=== PATIENT | male | born 1955 | race Hispanic/Latino ===

== ENCOUNTER 2018-09-25 08:06 | Observation (INO) | payer OTHER ==
--- OUTSIDE RECORDS SUMMARY | 2018-09-25 08:08 | XMS REPORT ---
:1955 [facility] Team Providers Name Role Phone Valera, Na Provider Role Unavailable Allergies, Adverse Reactions, Alerts Substance Reaction Event Type N.K.D.A. 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 Active Problem Obstructive sleep apnea G47.33 Active Assessment Obstructive apnea G47.33 Active Problem Chronic pain syndrome G89.4 Active Problem Obese E66.9 Active Problem Vertigo R42 Active Problem COPD, mild J44.9 Active Problem Essential hypertension I10 Active Assessment Hypothyroidism, unspecified E03.9 Active Assessment Neuropathy G62.9 Active Problem Obstructive apnea G47.33 Active Assessment Shortness of breath on exertion R06.02 Active Problem Osteoporosis M81.0 Active Problem Hypertriglyceridemia E78.1 Active Problem Diabetes E11.9 Active Problem Neuropathy G62.9 Active Assessment Controlled type 2 diabetes mellitus E11.9 Active without complication, without long-term current use of insulin Assessment Hypertriglyceridemia E78.1 Active Assessment Essential hypertension I10 Active Problem At high risk for falls Z91.81 Active Problem Hypothyroidism, unspecified E03.9 Active Problem 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 hypertension Problem Controlled type 2 diabetes mellitus E11.9 Active without complication, without long-term current use of insulin Medications Medication Code Code Instructions Start End Date Status Dosage System Date Metformin HCl ND 29999495516 1000 MG Orally Active 1 tablet Twice a day with meals Levothyroxine ND 78260341831 25 MCG Orally Active 1 tablet Sodium Once a day on an empty stomach in the morning Vitamin D-3 ND 75904043376 1000 UNIT Active 1 capsule Orally Once a day OneTouch Ultra ND 69959182116 - Active USE TO Test TEST BLOOD GLUCOSE TWICE A DAY ProAir HFA [facility] 95947503997 108 (90 Base) Jul 05, Active 2 puffs as MCG/ACT 2017 needed Inhalation every 6 hrs Januvia [facility] 89859215998 100 MG Orally Active 1 tablet Once a day Gabapentin [facility] 67392418313 300 MG Orally Active 1 capsule three times a day Revatio [facility] 04418393930 20 MG Orally Active 1 tablet Three times a day Multivitamin [facility] 006[address]2395 - Orally Active not defined Ultracet [facility] 05688526513 37.5-325 MG Active 2 tablets Orally every 6 as needed hrs Anoro Ellipta [facility] 40761414186 62.5mcg/25 mcg Jul 05October Active 1 puff Orally once a 2017 day in AM Pravachol [facility] 83242723577 40 MG Orally Active 1 tablet Once a day Results No Known Results Immunizations Vaccine Administration Date Afluria Jul 05, 2018 Summary Purpose eClinicalWorks Submission
--- OUTSIDE RECORDS SUMMARY | 2018-09-25 08:08 | XMS REPORT ---
:1955 [facility] Address [address] [place] [address] Dr. Machado [address] [place] [id number] Care Team Providers Name Role Phone Unavailable Unavailable Unavailable Problems This patient has no known problems. Allergies, Adverse Reactions, Alerts This patient has no known allergies or adverse reactions. Medications This patient has no known medications.
--- OUTSIDE RECORDS SUMMARY | 2018-09-25 08:08 | XMS REPORT ---
:1955 [address] [facility] Team Providers Name Role Phone Valera, Na Provider Role Unavailable Allergies, Adverse Reactions, Alerts Substance Reaction Event Type N.K.D.A. Info Not Available Non Drug Allergy Problems Problem Type Condition Code Onset Dates Condition Status Problem Polymyositis M33.20 Active Problem Chronic pain syndrome G89.4 Active Problem Obstructive sleep apnea G47.33 Active Problem Diabetes E11.9 Active Problem Neuropathy G62.9 Active Problem Essential hypertension I10 Active Problem Obese E66.9 Active Problem Vertigo R42 Active Problem Osteoporosis M81.0 Active Problem Hypertriglyceridemia E78.1 Active Assessment Hypertriglyceridemia E78.1 Active Assessment Essential hypertension I10 Active Assessment Neuropathy G62.9 Active Assessment Hypothyroidism, unspecified E03.9 Active Problem 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 hypertension Problem Controlled type 2 diabetes mellitus E11.9 Active without complication, without long-term current use of insulin Assessment Controlled type 2 diabetes mellitus E11.9 Active without complication, without long-term current use of insulin Problem At high risk for falls Z91.81 Active Problem Hypothyroidism, unspecified E03.9 Active Medications Medication Code Code Instructions Start End Status Dosage System Date Date Metformin HCl [facility] 28668586002 1000 MG Orally Active 1 tablet Twice a day with meals OneTouch Ultra [facility] 99132661792 - Active USE TO Test TEST BLOOD GLUCOSE TWICE A DAY Multivitamin [facility] 76846-32606 - Orally Active not defined Revatio [facility] 63170447149 20 MG Orally Active 1 tablet Three times a day Levothyroxine ND 12374989004 25 MCG Orally Active 1 tablet Sodium Once a day on an empty stomach in the morning Pravachol [facility] 29487806327 40 MG Orally Active 1 tablet Once a day Gabapentin [facility] 32870319744 300 MG Orally Active 1 capsule three times a day Vitamin D-3 [facility] 71270365386 1000 UNIT Active 1 capsule Orally Once a day Terbinafine HCl [facility] 16084626180 250 MG Orally Inactive 1 tablet Once a day Ultracet [facility] 51703043611 37.5-325 MG Active 2 tablets Orally every 6 as needed hrs Januvia [facility] 59295552653 100 MG Orally Active 1 tablet Once a day Results No Known Results Summary Purpose eClinicalWorks Submission
[2018-09-25] MEDS ORDERED: NA CHLORIDE 0.9% 1,000 ML ONE ×2 (08:54→13:37)
[2018-09-25] MEDS ORDERED: ONDANSETRON 4 MG/2 ML VIAL ONE ×2 (08:54→11:35)
[2018-09-25 09:10] LABS: Absolute Lymphocytes (CBC) 1.4 K/uL (0.7-4.9); Absolute Monocytes 0.9 K/uL (0.1-1.3); Absolute Neutrophil 9.5 K/uL (1.8-8.0); Basophils % 0.1 % (0-1.3); Hematocrit 49.5 % (39.6-49.0); Lymphocytes % 12.2 % (15.3-44.8); MPV 8.9 fL (7.6-11.3); Monocytes % 7.6 % (3.3-12.3)
[2018-09-25 09:17] LABS: ALT/SGPT 56 U/L (12-78); AST/SGOT 43 U/L (15-37); Alkaline Phosphatase 88 U/L (45-117); BUN Blood Urea Nitrogen 14 mg/dL (7-18); Bicarbonate 26 mmol/L (21-32); Bilirubin Direct 0.2 mg/dL (0-0.2); Bilirubin Total 0.6 mg/dL (0.2-1.0); Glucose Level 202 mg/dL (74-106); Lipase 76 U/L (73-393); Potassium 3.8 mmol/L (3.5-5.1); Protein, Total 8.6 g/dL (6.4-8.2); Sodium Level 136 mmol/L (136-145)
--- NOTE | 2018-09-25 09:52 | RAD REPORT ---
EXAM DESCRIPTION: RAD - Abdomen Acute Series - 09/25/2018 9:03 am CLINICAL HISTORY: Abdominal pain FINDINGS: The bowel gas pattern is unremarkable with moderate amount of stool throughout the colon. No abnormal calcification is displayed. Free air is not seen beneath the diaphragm. Lungs appear clear of acute infiltrate. Dilated central pulmonary arteries without significant change from 2009 compatible with pulmonary art erial hypertension
[2018-09-25] MEDS ORDERED: MORPHINE 4 MG/ML SYR ONE (11:35)
[2018-09-25 12:08] LABS: Urine Bacteria 20-50 /HPF (NONE SEEN); Urine Culture Reflex Order REFLEXED; Urine Mucus 2+ /HPF (NONE SEEN); Urine RBC <5 /HPF (NONE SEEN)
[2018-09-25 12:08] LABS: Urine Blood TRACE (NEG); Urine Glucose NEGATIVE (NEG); Urine Protein 3+ (NEG); Urine Specific Gravity >1.030 (1.005-1.030); Urine pH 5.5 (5.0-7.0)
--- NOTE | 2018-09-25 12:15 | RAD REPORT ---
EXAM DESCRIPTION: CT - Stone Protocol - 09/25/2018 11:48 am CLINICAL HISTORY: Abdominal pain. Vomiting COMPARISON: None. TECHNIQUE: Computed axial tomography of the abdomen pelvis was obtained without oral or IV contrast. Lack of IV and oral contrast limits evaluation of solid organs, bowel, and vessels. Coronal reformat roxann images were obtained and reviewed. All CT scans are performed using dose optimization technique as appropriate and may include automated exposure control or mA/KV adjustment according to patient size. FINDINGS: A renal calculus is not seen. An ureteral calculus is not noted. A bladder calculus is not present. The liver, spleen, pancreas and adrenals appear grossly normal There is no evidence of diverticulitis. The appendix appears normal Small gallstones without gallbladder wall thickening Atrophy of the muscles of the left pelvis present Mild old compression fracture L2 vertebral body Mild right basilar lung atelectasis/scarring The stomach, duodenum and proximal jejunum are dilated IMPRESSION: Negative for a genitourinary calculus Cholelithiasis without evidence of cholecystitis Mild dilatation of the stomach, duodenum and proximal jejunum probably representing a gastroenteritis . A partial mechanical obstruction is considered less likely. If the patient's symptoms persist then a followup abdominal plain film series would be recommended
--- NOTE | 2018-09-25 13:10 | ER ---
Nurse's Notes [facility] Name: Antony Johnson Age: 63 yrs Sex: Male : 1955 Arrival Date: 09/25/2018 Time: 08:07 Bed 8 Private MD: Kendal Valera Diagnosis: Vomiting;Dehydration Presentation: 09/25 08:25 Presenting complaint: Patient states: vomiting and abd pain since last night. iw Transition of care: patient was not received from another setting of care. Onset of symptoms was September 24, 2018. Risk Assessment: Do you want to hurt yourself or someone else? Patient reports no desire to harm self or others. Initial Sepsis Screen: Does the patient meet any 2 criteria? No. Patient's initial sepsis screen is negative. Does the patient have a suspected source of infection? No. Patient's initial sepsis screen is negative. Care prior to arrival: None. 08:25 Method Of Arrival: Wheelchair iw 08:25 Acuity: GINO 3 iw Historical: - Allergies: 08:27 No Known Allergies; iw - Home Meds: 13:54 Januvia 100 mg oral tab 1 tab once daily [Active]; gabapentin 300 mg oral cap 1 cap 3 ph times per day [Active]; tramadol-acetaminophen 37.5-325 mg Oral tab 2 tabs three times a day [Active]; levothyroxine 25 mcg tab 1 tab once daily [Active]; ProAir HFA 90 mcg/actuation inhalation HFAA 2 puffs every 6 hours [Active]; Anoro Ellipta 62.5-25 mcg/actuation inhalation dsdv 1 puff once daily [Active]; metformin 1,000 mg Oral tab 1 tab 2 times per day [Active]; pravastatin 40 mg oral tab 1 tab once daily [Active]; furosemide 20 mg Oral tab 1 tab once daily [Active]; - PMHx: 08:29 Diabetes - NIDDM; liver problems; iw - Immunization history:: Adult Immunizations up to date. - Social history:: Smoking status: Patient/guardian denies using tobacco. - Ebola Screening: : Patient negative for fever greater than or equal to 101.5 degrees Fahrenheit, and additional compatible Ebola Virus Disease symptoms Patient denies exposure to infectious person Patient denies travel to an Ebola-affected area in the 21 days before illness onset No symptoms or risks identified at this time. Screenin:51 Abuse screen: Denies threats or abuse. Denies injuries from another. Nutritional ph screening: No deficits noted. Tuberculosis screening: No symptoms or risk factors identified. Fall Risk None identified. Assessment: 08:55 General: Appears in no apparent distress. comfortable, unkempt, Behavior is calm, ph cooperative, appropriate for age, Reports chills for 12-24 hours. Pain: Complains of pain in abdomen diffusely Pain does not radiate. Neuro: Level of Consciousness is awake, alert, obeys commands, Oriented to person, place, time, situation. 08:55 Cardiovascular: Capillary refill < 3 seconds in bilateral fingers Patient's skin is ph warm and dry. Respiratory: Airway is patent Respiratory effort is even, unlabored, Respiratory pattern is regular, symmetrical. GI: Abdomen is round Pt is actively vomiting bile, Bowel sounds present X 4 quads. Abdomen is tender to palpation X 4 quads. Reports lower abdominal pain, upper abdominal pain, bloating, nausea, vomiting, Patient currently denies diarrhea. Derm: Skin is intact, Skin is pink, warm \\T\\ dry. Musculoskeletal: Circulation, motion, and sensation intact. Range of motion: intact in all extremities. 10:00 Reassessment: Patient appears in no apparent distress at this time. Patient and/or ph family updated on plan of care and expected duration. Pain level reassessed. Patient is alert, oriented x 3, equal unlabored respirations, skin warm/dry/pink. 11:15 Reassessment: Patient appears in no apparent distress at this time. Patient and/or ph family updated on plan of care and expected duration. Pain level reassessed. Patient is alert, oriented x 3, equal unlabored respirations, skin warm/dry/pink. Pt c/o nausea, bile-like emesis noted in bag, pt also c/o diffuse abdominal pain, states, " I want some Morphine." ERP notified, see MAR. 12:20 Reassessment: Patient appears in no apparent distress at this time. Patient and/or ph family updated on plan of care and expected duration. Pain level reassessed. Patient is alert, oriented x 3, equal unlabored respirations, skin warm/dry/pink. Pt reports that pain and nausea have improved. 14:00 Reassessment: Patient appears in no apparent distress at this time. Patient and/or ph family updated on plan of care and expected duration. Pain level reassessed. Patient is alert, oriented x 3, equal unlabored respirations, skin warm/dry/pink. Pt resting quietly, family at bedside, awaiting room assignment. 15:10 Reassessment: Patient appears in no apparent distress at this time. Patient and/or ph family updated on plan of care and expected duration. Pain level reassessed. Patient is alert, oriented x 3, equal unlabored respirations, skin warm/dry/pink. Report called to Evangelist OBREGON. Vital Signs: 08:28 BP 136 / 92; Pulse 81; Resp 18 S; Pulse Ox 95% on R/A; Weight 84.82 kg; Height 5 ft. 2 iw in. (157.48 cm); Pain 10/10; 09:30 BP 146 / 98; Pulse 77; Resp 18; Pulse Ox 94% on R/A; ph 10:30 BP 129 / 83; Pulse 86; Resp 18; Pulse Ox 95% on R/A; ph 11:30 BP 131 / 80; Pulse 82; Resp 16; Pulse Ox 94% on R/A; ph 13:00 BP 123 / 78; Pulse 78; Resp 18; Pulse Ox 95% on R/A; ph 14:00 BP 124 / 87; Pulse 85; Resp 18; Pulse Ox 94% on R/A; ph 15:00 BP 125 / 82; Pulse 80; Resp 20; Temp 97.8; Pulse Ox 95% on R/A; ph 08:28 Body Mass Index 34.20 (84.82 kg, 157.48 cm) iw ED Course: 08:07 Patient arrived in ED. rg4 08:10 Kendal Valera MD is Private Physician. rg4 08:17 Tino House MD is Attending Physician. gs 08:26 Triage completed. iw 08:28 Arm band placed on. iw 08:36 Jessie Chery, SABAS is Primary Nurse. ph 08:50 Inserted saline lock: 20 gauge in right antecubital area, using aseptic technique. ph Blood collected. 09:05 XRAY Abdomen Acute Series In Process Unspecified. EDMS 11:[address] mw3 11:[address] CT Stone Protocol In Process Unspecified. EDMS 12:50 Patient has correct armband on for positive identification. Placed in gown. Bed in low ph position. Call light in reach. Side rails up X 1. Pulse ox on. NIBP on. Door closed. Noise minimized. Warm blanket given. 12:50 No provider procedures requiring assistance completed. ph 13:08 Cate Faustin MD is Hospitalizing Provider. gs 15:23 Patient admitted, IV remains in place. ph Administered Medications: 08:54 Drug: Zofran 4 mg Route: IVP; Site: right antecubital; ph 11:30 Follow up: Response: No adverse reaction; Nausea unchanged ph 08:55 Drug: NS 0.9% 1000 ml Route: IV; Rate: 1 bolus; Site: right antecubital; ph 12:52 Follow up: Response: No adverse reaction; IV Status: Completed infusion ph 11:33 Drug: Zofran 4 mg Route: IVP; Site: right antecubital; ph 12:51 Follow up: Response: No adverse reaction; Nausea is decreased ph 11:35 Drug: morphine 4 mg Route: IVP; Site: right antecubital; ph 12:51 Follow up: Response: No adverse reaction; Pain is decreased ph 14:05 Drug: NS 0.9% 1000 ml Route: IV; Rate: 150 ml/hr; Site: right antecubital; ph 14:34 Follow up: IV Status: Completed infusion hj Outcome: 13:09 Decision to Hospitalize by Provider. gs 15:23 Admitted to Tele accompanied by tech, family with patient, via wheelchair, with chart. ph 15:23 Condition: stable 15:23 Instructed on the need for admit. 15:39 Patient left the ED. ph Signatures: Dispatcher [employer] Betsey Quinones RN RN iw Hall, Patricia, RN RN ph Joaquin, Henry, RN RN hj Garcia, Rubi rg4 Tino House MD MD gs Willis, Michelle mw3
--- NOTE | 2018-09-25 13:11 | EDPHYS ---
Physician Documentation [facility] Name: Antony Johnson Age: 63 yrs Sex: Male : 1955 Arrival Date: 09/25/2018 Time: 08:07 Bed 8 Private MD: Kendal Valera ED Physician Tino House HPI: 09/25 13:05 This 63 yrs old Male presents to ER via Wheelchair with complaints of Vomiting.gs 13:05 The patient presents to the emergency department with nausea, vomiting. Onset: The gs symptoms/episode began/occurred this morning, at 01:00. Possible causes: unknown. The symptoms are aggravated by nothing. The symptoms are alleviated by nothing. Associated signs and symptoms: Pertinent positives: abdominal pain, Pertinent negatives: anorexia. Severity of symptoms: At their worst the symptoms were moderate in the emergency department the symptoms are unchanged. The patient has not experienced similar symptoms in the past. The patient has not recently seen a physician. Historical: - Allergies: 08:27 No Known Allergies; iw - Home Meds: 13:54 Januvia 100 mg oral tab 1 tab once daily [Active]; gabapentin 300 mg oral cap 1 cap 3 ph times per day [Active]; tramadol-acetaminophen 37.5-325 mg Oral tab 2 tabs three times a day [Active]; levothyroxine 25 mcg tab 1 tab once daily [Active]; ProAir HFA 90 mcg/actuation inhalation HFAA 2 puffs every 6 hours [Active]; Anoro Ellipta 62.5-25 mcg/actuation inhalation dsdv 1 puff once daily [Active]; metformin 1,000 mg Oral tab 1 tab 2 times per day [Active]; pravastatin 40 mg oral tab 1 tab once daily [Active]; furosemide 20 mg Oral tab 1 tab once daily [Active]; - PMHx: 08:29 Diabetes - NIDDM; liver problems; iw - Immunization history:: Adult Immunizations up to date. - Social history:: Smoking status: Patient/guardian denies using tobacco. - Ebola Screening: : Patient negative for fever greater than or equal to 101.5 degrees Fahrenheit, and additional compatible Ebola Virus Disease symptoms Patient denies exposure to infectious person Patient denies travel to an Ebola-affected area in the 21 days before illness onset No symptoms or risks identified at this time. ROS: 13:05 All other systems are negative. gs Exam: 13:05 Head/Face: Normocephalic, atraumatic. Eyes: Pupils equal round and reactive to light, gs extra-ocular motions intact. Lids and lashes normal. Conjunctiva and sclera are non-icteric and not injected. Cornea within normal limits. Periorbital areas with no swelling, redness, or edema. ENT: Nares patent. No nasal discharge, no septal abnormalities noted. Tympanic membranes are normal and external auditory canals are clear. Oropharynx with no redness, swelling, or masses, exudates, or evidence of obstruction, uvula midline. Mucous membranes moist. Neck: Trachea midline, no thyromegaly or masses palpated, and no cervical lymphadenopathy. Supple, full range of motion without nuchal rigidity, or vertebral point tenderness. No Meningismus. Chest/axilla: Normal chest wall appearance and motion. Nontender with no deformity. No lesions are appreciated. Cardiovascular: Regular rate and rhythm with a normal S1 and S2. No gallops, murmurs, or rubs. Normal PMI, no JVD. No pulse deficits. Respiratory: Lungs have equal breath sounds bilaterally, clear to auscultation and percussion. No rales, rhonchi or wheezes noted. No increased work of breathing, no retractions or nasal flaring. Back: No spinal tenderness. No costovertebral tenderness. Full range of motion. Skin: Warm, dry with normal turgor. Normal color with no rashes, no lesions, and no evidence of cellulitis. MS/ Extremity: Pulses equal, no cyanosis. Neurovascular intact. Full, normal range of motion. Neuro: Awake and alert, GCS 15, oriented to person, place, time, and situation. Cranial nerves II-XII grossly intact. Motor strength 5/5 in all extremities. Sensory grossly intact. Cerebellar exam normal. Normal gait. 13:05 Constitutional: The patient appears alert, awake, uncomfortable. 13:05 Abdomen/GI: Palpation: mild abdominal tenderness, in all quadrants. Vital Signs: 08:28 BP 136 / 92; Pulse 81; Resp 18 S; Pulse Ox 95% on R/A; Weight 84.82 kg; Height 5 ft. 2 iw in. (157.48 cm); Pain 10/10; 09:30 BP 146 / 98; Pulse 77; Resp 18; Pulse Ox 94% on R/A; ph 10:30 BP 129 / 83; Pulse 86; Resp 18; Pulse Ox 95% on R/A; ph 11:30 BP 131 / 80; Pulse 82; Resp 16; Pulse Ox 94% on R/A; ph 13:00 BP 123 / 78; Pulse 78; Resp 18; Pulse Ox 95% on R/A; ph 14:00 BP 124 / 87; Pulse 85; Resp 18; Pulse Ox 94% on R/A; ph 15:00 BP 125 / 82; Pulse 80; Resp 20; Temp 97.8; Pulse Ox 95% on R/A; ph 08:28 Body Mass Index 34.20 (84.82 kg, 157.48 cm) iw MDM: 08:34 Patient medically screened. 13:05 Differential diagnosis: Nonspecific abd pain, gastritis, viral gastroenteritis, gs gastroenteritis. Data reviewed: vital signs, nurses notes, lab test result(s), radiologic studies. Counseling: I had a detailed discussion with the patient and/or guardian regarding: the historical points, exam findings, and any diagnostic results supporting the discharge/admit diagnosis. Response to treatment: the patient's symptoms have mildly improved after treatment, and as a result, I will admit patient. Physician consultation: Rosas Torres MD and will see patient in inpatient room, would like admission per Dr. Cate Faustin MD. 09/25 08:36 Order name: Basic Metabolic Panel; Complete Time: 09:54 09/25 08:36 Order name: CBC with Diff; Complete Time: 09:54 09/25 08:36 Order name: Hepatic Function; Complete Time: 09:54 09/25 08:36 Order name: Lipase; Complete Time: 09:54 09/25 08:36 Order name: Urine Microscopic Only; Complete Time: 12:22 09/25 11:45 Order name: Urine Dipstick--Ancillary (enter results); Complete Time: 12:22 va 09/25 08:36 Order name: XRAY Abdomen Acute Series; Complete Time: 09:54 09/25 11:21 Order name: CT Stone Protocol; Complete Time: 12:22 09/25 12:12 Order name: Urine Culture [facility] 09/25 13:48 Order name: Urine Drug Screen [facility] 09/25 13:48 Order name: Alcohol Serum/Plasma EDMS 09/25 08:36 Order name: IV Saline Lock; Complete Time: 08:54 09/25 08:36 Order name: Labs collected and sent; Complete Time: 08:54 09/25 08:36 Order name: Urine Dipstick-Ancillary (obtain specimen); Complete Time: 12:25 gs Administered Medications: 08:54 Drug: Zofran 4 mg Route: IVP; Site: right antecubital; ph 11:30 Follow up: Response: No adverse reaction; Nausea unchanged ph 08:55 Drug: NS 0.9% 1000 ml Route: IV; Rate: 1 bolus; Site: right antecubital; ph 12:52 Follow up: Response: No adverse reaction; IV Status: Completed infusion ph 11:33 Drug: Zofran 4 mg Route: IVP; Site: right antecubital; ph 12:51 Follow up: Response: No adverse reaction; Nausea is decreased ph 11:35 Drug: morphine 4 mg Route: IVP; Site: right antecubital; ph 12:51 Follow up: Response: No adverse reaction; Pain is decreased ph 14:05 Drug: NS 0.9% 1000 ml Route: IV; Rate: 150 ml/hr; Site: right antecubital; ph 14:34 Follow up: IV Status: Completed infusion Disposition: 09/25/18 13:09 Hospitalization ordered by Cate Faustin for Observation. Preliminary diagnosis are Vomiting, Dehydration. - Bed requested for Telemetry/MedSurg (observation). - Status is Observation. ph - Condition is Stable. - Problem is new. - Symptoms have improved. UTI on Admission? No Signatures: Dispatcher [employer] [facility] Ruthy Carrillo RN RN dw Williams, Irene, RN RN Jessie Chery RN RN ph Tino House MD MD gs Joaquin, Henry RN hj Corrections: (The following items were deleted from the chart) 13:57 13:09 Hospitalization Ordered by Cate Faustin MD for Observation. Preliminary diagnosis dw is Vomiting; Dehydration. Bed requested for Telemetry/MedSurg (observation). Status is Observation. Condition is Stable. Problem is new. Symptoms have improved. UTI on Admission? No. 15:39 13:57 09/25/2018 13:09 Hospitalization Ordered by Cate Faustin MD for Observation. ph Preliminary diagnosis is Vomiting; Dehydration. Bed requested for Telemetry/MedSurg (observation). Status is Observation. Condition is Stable. Problem is new. Symptoms have improved. UTI on Admission? No. dw
--- NOTE | 2018-09-25 13:59 | P.HP ---
Certification for Inpatient Patient admitted to: Observation With expected LOS: <2 Midnights Practitioner: I am a practitioner with admitting privileges, knowledge of patient current condition, hospital course, and medical plan of care. Services: Services provided to patient in accordance with Admission requirements found in Title 42 Section 412.3 of the Code of Federal Regulations Patient History Date of Service: 09/25/18 Primary Care Provider: Dr. Valera Reason for admission: Nausea vomiting, abdominal pain History of Present Illness: This is a 62-year-old male with history of diabetes mellitus type 2, former heavy alcohol user, C-pap sleep apnea, questionable pulmonary arterial hypertension, some cardiac disease that there been able to describe comes in with complaints of intractable nausea and vomiting along with abdominal pain for the past 1 day. Per patient, started at 5:00 p.m. last night, describes it as crampy, intermittently sharp diffuse abdominal pain without any radiation. Associated with nausea and vomiting. Last vomiting episode in the ER, nonbloody and nonbilious. He also endorses abdominal bloating and chills. He denies any fevers, chest pain, shortness of breath, diarrhea, constipation, dizziness, headache or syncopal/presyncopal episode. He also denies eating any abnormal foods in the past few days. He states that everyone in his family has eaten the same meal. He does state that he is a former heavy alcohol user. Abdominal surgical scar noted on the abdomen but patient is unable to tell me what kind of surgery he has had. He states that he did some surgery because he was a heavy alcohol user. He denies any current alcoholic usage In the ER, he was hemodynamically stable. Labs were pertinent for WBC count of 11.8, otherwise unremarkable. CT scan pertinent for cholelithiasis without cholecystitis, suspected gastroenteritis versus partial small bowel obstruction. He received 1 L bolus IV fluids, Zofran and morphine. At the time of my exam, patient was alert oriented x3, mild distress secondary to nausea and diffuse abdominal pain. He remained hemodynamically stable. - Past Medical/Surgical History Diabetic: Yes -: Diabetes mellitus type 2 -: Sleep apnea, CPAP dependent -: Cardiac disease, patient unsure -: Abdominal surgery, patient unsure - Social History Smoking Status: Never smoker Alcohol use: No Review of Systems 10-point ROS is otherwise unremarkable Physical Examination - Physical Exam General: Alert, In no apparent distress, Oriented x3 HEENT: Atraumatic, PERRLA, Mucous membr. moist/pink, EOMI, Sclerae nonicteric Neck: Supple, 2+ carotid pulse no bruit, No LAD, Without JVD or thyroid abnormality Respiratory: Clear to auscultation bilaterally, Normal air movement Cardiovascular: Regular rate/rhythm, Normal S1 S2 Gastrointestinal: Normal bowel sounds, Distended, Tenderness Musculoskeletal: No tenderness Integumentary: No rashes Neurological: Normal gait, Normal speech, Normal strength at 5/5 x4 extr, Normal tone, Normal affect - Studies Laboratory Data (last 24 hrs) 09/25/18 08:50: WBC 11.8 H, Hgb 16.7, Hct 49.5 H, Plt Count 296 09/25/18 08:50: Sodium 136, Potassium 3.8, BUN 14, Creatinine 0.58, Glucose 202 H, Total Bilirubin 0.6, AST 43 H, ALT 56, Alkaline Phosphatase 88, Lipase 76 Assessment and Plan - Problems (Diagnosis) (1) Abdominal pain Current Visit: Yes Status: Acute Qualifiers: Abdominal location: generalized Qualified Code(s): R10.84 - Generalized abdominal pain (2) Small bowel obstruction, partial Current Visit: Yes Status: Suspected (3) Gastroenteritis Current Visit: Yes Status: Suspected (4) Diabetes mellitus Current Visit: Yes Status: Chronic Qualifiers: Diabetes mellitus type: type 2 Diabetes mellitus retirement insulin use: without buttermaker continuous churn use Diabetes mellitus complication status: with hyperglycemia Qualified Code(s): E11.65 - Type 2 diabetes mellitus with hyperglycemia (5) Sleep apnea Current Visit: Yes Status: Chronic Qualifiers: Sleep apnea type: unspecified type Qualified Code(s): G47.30 - Sleep apnea , unspecified (6) Cholelithiasis Current Visit: Yes Status: Acute Qualifiers: Cholelithiasis location: gallbladder Cholecystitis presence: without cholecystitis Biliary obstruction: without biliary obstruction Qualified Code(s): K80.20 - Calculus of gallbladder without cholecystitis without obstruction (7) Cardiac disease Current Visit: Yes Status: Chronic - Plan This is a 63-year-old male with: Abdominal pain (Acute) R10.9 CT scan with suspected gastroenteritis versus partial small bowel obstruction. Will keep NPO, continue IV fluids, general surgery consult placed. IV morphine for pain, Zofran for nausea as needed Serial abdominal exams Cholelithiasis (Acute) K80.20 Ultrasound of the abdomen pending. Cardiac disease (Chronic) Patient unsure of what kind of cardiac disease. States that he sees Dr. Stout in [facility] for cardiology. Diabetes mellitus (Chronic) E11.9. Non-insulin dependent. Accu-Cheks a.c. HS and mild sliding scale insulin for now. We will continue to adjust. Sleep apnea (Chronic) G47.30 CPAP as needed at night for sleep apnea. DVT prophylaxis: Lovenox GI prophylaxis: None Diet: NPO Disposition: Admit to the floor. Pending symptomatic improvement and general surgery evaluation. Monitor via a.m. labs - Advance Directives Does patient have a Living Will: No Does patient have a Durable POA for Healthcare: No Time Spent Managing Pts Care (In Minutes): 55
[2018-09-25] MEDS ORDERED: ONDANSETRON 4 MG/2 ML VIAL IV PRN (15:15)
[2018-09-25] MEDS ORDERED: MORPHINE 2 MG/ML SYR IV PRN (15:15)
[2018-09-25] MEDS ORDERED: D50W 25 GM/50 ML SYRINGE IV PRN (15:15)
[2018-09-25] MEDS ORDERED: GLUCAGON 1 MG/VIAL IM PRN (15:15)
[2018-09-25] MEDS ORDERED: KCL 20 MEQ/100 mL IVPB 20 MEQ/100 ML BAG IV SCH (16:00)
[2018-09-25] MEDS: NA CHLORIDE 0.9% 1,000 ML IV SCH (16:29)
[2018-09-25] MEDS: ENOXAPARIN 40 MG/0.4 ML SQ SCH (16:30)
[2018-09-25] MEDS: INSULIN -REGULAR HUMAN 50 UNIT/0.5 ML ML SQ SCH ×2 (16:30→21:00)
--- NOTE | 2018-09-25 20:04 | P.CNS ---
Date of Consult: 09/25/18 PC: I was asked to see this 63-year-old male in regards to his abdominal pain. HPC: Patient presented emergency room with a 48 hr history of abdominal pain grand vomiting. States that the pain is all over his abdomen, not that bad, the worst part is a vomiting associated with it. Has not had symptoms like this before. Has not had any unusual meals. PMH: Diabetes PSHx: States he had previous liver surgery but not sure exactly what was done. SOC: No known allergies SYS REVIEW: No cough, wheeze, shortness of breath. No chest pain or palpitations. States he is in fairly good shape. Has not had pain like this before O/E awake alert stable HEENT: Not jaundiced Chest: Chest movement equal bilateral ABD: Soft nontender, generous midline scar, old drain site right side of abdomen LOCO: Intact DATA: CT scan shows gallstones but no evidence of cholecystitis no evidence of any acute bowel obstruction IMPRESSION: Abdominal pain PLAN: The patient has been admitted at this time for IV fluids, and observation. We will reassess in the a.m.. He may be able to be seen as possible outpatient with GI follow-up.
--- NOTE | 2018-09-25 22:01 | RAD REPORT ---
EXAM DESCRIPTION: US - Abdomen Exam Complete - 09/25/2018 9:38 pm CLINICAL HISTORY: Abdominal pain COMPARISON: none FINDINGS: The liver has a mildly increased echotexture. Gallstones are present. The gallbladder wall is not thickened. The biliary tree is normal caliber. . The pancreas appears normal in size and echotexture The right kidney measures 11 centimeters with a normal echotexture. The left kidney measures 11 centimeters with a normal echotexture. The spleen measures 11 centimeters. The abdominal aorta and inferior vena cava appear unremarkable IMPRESSION: Mildly increased hepatic echotexture consistent with fatty infiltration Cholelithiasis
[2018-09-25 22:20] LABS: Urine Appearance CLEAR; Urine Bilirubin NEGATIVE (NEG); Urine Blood NEGATIVE (NEG); Urine Color YELLOW; Urine Glucose NEGATIVE (NEG); Urine Protein TRACE (NEG); Urine Specific Gravity 1.025 (1.005-1.030); Urine pH 5.5 (5.0-7.0)
[2018-09-25 22:29] LABS: Urine Microscopic Reflex ORDER UMIC
[2018-09-25 23:19] LABS: Barbiturates NEGATIVE (NEGATIVE); Benzodiazepines NEGATIVE (NEGATIVE); Cocaine NEGATIVE (NEGATIVE); METHAMPHETAM NEGATIVE (NEGATIVE); Methadone NEGATIVE (NEGATIVE); Opiates POSITIVE (NEGATIVE); Phencyclidine NEGATIVE (NEGATIVE); THC Cannibis NEGATIVE (NEGATIVE)
[2018-09-25 23:32] LABS: Urine Bacteria <20 /HPF (NONE SEEN); Urine Culture Reflex Order NOT NEEDED; Urine Mucus 2+ /HPF (NONE SEEN); Urine RBC NONE SEEN /HPF (NONE SEEN)
[2018-09-26] MEDS: NA CHLORIDE 0.9% 1,000 ML IV SCH ×3 (01:15→13:47)
[2018-09-26 06:02] LABS: Absolute Lymphocytes (CBC) 2.8 K/uL (0.7-4.9); Absolute Monocytes 1.4 K/uL (0.1-1.3); Absolute Neutrophil 5.9 K/uL (1.8-8.0); Basophils % 0.1 % (0-1.3); Eosinophils % 0.3 % (0-4.4); Hematocrit 42.4 % (39.6-49.0); Lymphocytes % 27.6 % (15.3-44.8); MPV 8.6 fL (7.6-11.3); Monocytes % 13.6 % (3.3-12.3); RBC Red Blood Cell Count 4.64 M/uL (4.33-5.43)
[2018-09-26 06:32] LABS: ALT/SGPT 40 U/L (12-78); AST/SGOT 44 U/L (15-37); Alkaline Phosphatase 65 U/L (45-117); BUN Blood Urea Nitrogen 12 mg/dL (7-18); Bicarbonate 30 mmol/L (21-32); Bilirubin Total 0.6 mg/dL (0.2-1.0); Glucose Level 129 mg/dL (74-106); Phosphorus 2.8 mg/dL (2.5-4.9); Potassium 4.4 mmol/L (3.5-5.1); Protein, Total 6.3 g/dL (6.4-8.2); Sodium Level 143 mmol/L (136-145)
[2018-09-26] MEDS: INSULIN -REGULAR HUMAN 50 UNIT/0.5 ML ML SQ SCH ×3 (07:30→16:30)
--- NOTE | 2018-09-26 15:46 | P.SSS ---
Patient History Date of Service: 09/26/18 Primary Care Provider: Dr. Valera Reason for admission: Nausea vomiting, abdominal pain History of Present Illness: This is a 62-year-old male with history of diabetes mellitus type 2, former heavy alcohol user, C-pap sleep apnea, questionable pulmonary arterial hypertension, some cardiac disease that there been able to describe comes in with complaints of intractable nausea and vomiting along with abdominal pain for the past 1 day. Per patient, started at 5:00 p.m. last night, describes it as crampy, intermittently sharp diffuse abdominal pain without any radiation. Associated with nausea and vomiting. Last vomiting episode in the ER, nonbloody and nonbilious. He also endorses abdominal bloating and chills. He denies any fevers, chest pain, shortness of breath, diarrhea, constipation, dizziness, headache or syncopal/presyncopal episode. He also denies eating any abnormal foods in the past few days. He states that everyone in his family has eaten the same meal. He does state that he is a former heavy alcohol user. Abdominal surgical scar noted on the abdomen but patient is unable to tell me what kind of surgery he has had. He states that he did some surgery because he was a heavy alcohol user. He denies any current alcoholic usage In the ER, he was hemodynamically stable. Labs were pertinent for WBC count of 11.8, otherwise unremarkable. CT scan pertinent for cholelithiasis without cholecystitis, suspected gastroenteritis versus partial small bowel obstruction. He received 1 L bolus IV fluids, Zofran and morphine. At the time of my exam, patient was alert oriented x3, mild distress secondary to nausea and diffuse abdominal pain. He remained hemodynamically stable. Allergies No Known Allergies Allergy (Unverified 09/25/18 15:11) Home Medications: Albuterol Sulfate [Proair Hfa] 2 puff IH Q6HP PRN 09/25/18 Furosemide 1 tab PO DAILY 09/25/18 Gabapentin 300 mg PO TID 09/25/18 Levothyroxine Sodium 1 tab PO [id number] 09/25/18 Metformin HCl 1 tab PO BIDWM 09/25/18 Pravastatin Sodium 1 tab PO DAILY 09/25/18 Sitagliptin Phosphate [Januvia*] 1 tab PO DAILY 09/25/18 Tramadol HCl/Acetaminophen [Tramadol-Acetaminophn 37.5-325] 2 tab PO TID Umeclidinium Brm/Vilanterol Tr [Anoro Ellipta 62.5-25 Mcg INH] 1 puff IH DAILY 09/25/18 - Past Medical/Surgical History Has patient received pneumonia vaccine in the past: Yes Diabetic: Yes -: Diabetes mellitus type 2 -: Sleep apnea, CPAP dependent -: Cardiac disease, patient unsure -: Abdominal surgery, patient unsure - Social History Smoking Status: Never smoker Alcohol use: No CD- Drugs: No Caffeine use: No Place of Residence: Home Review of Systems 10-point ROS is otherwise unremarkable Physical Examination - Vital Signs Temperature: 97.8 F Blood Pressure: 118/59 Pulse: 62 Respirations: 18 Pulse Ox (%): 92 - Physical Exam General: Alert, In no apparent distress, Oriented x3 HEENT: Atraumatic, PERRLA, Mucous membr. moist/pink, EOMI, Sclerae nonicteric Neck: Supple, 2+ carotid pulse no bruit, No LAD, Without JVD or thyroid abnormality Respiratory: Clear to auscultation bilaterally, Normal air movement Cardiovascular: Regular rate/rhythm, Normal S1 S2 Gastrointestinal: Normal bowel sounds, No tenderness Musculoskeletal: No tenderness Integumentary: No rashes Neurological: Normal gait, Normal speech, Normal strength at 5/5 x4 extr, Normal tone, Normal affect Lymphatics: No axilla or inguinal lymphadenopathy - Diagnosis (Problem(s)) (1) Abdominal pain Onset Date: 09/26/18 Current Visit: Yes Status: Resolved Qualifiers: Abdominal location: generalized Qualified Code(s): R10.84 - Generalized abdominal pain (2) Small bowel obstruction, partial Onset Date: 09/26/18 Current Visit: Yes Status: Ruled-out (3) Gastroenteritis Onset Date: 09/26/18 Current Visit: Yes Status: Ruled-out (4) Diabetes mellitus Onset Date: 09/26/18 Current Visit: Yes Status: Chronic Qualifiers: Diabetes mellitus type: type 2 Diabetes mellitus nursing home insulin use: without nursing home use Diabetes mellitus complication status: with hyperglycemia Qualified Code(s): E11.65 - Type 2 diabetes mellitus with hyperglycemia (5) Sleep apnea Onset Date: 09/26/18 Current Visit: Yes Status: Chronic Qualifiers: Sleep apnea type: unspecified type Qualified Code(s): G47.30 - Sleep apnea , unspecified (6) Cholelithiasis Onset Date: 09/26/18 Current Visit: Yes Status: Acute Qualifiers: Cholelithiasis location: gallbladder Cholecystitis presence: without cholecystitis Biliary obstruction: without biliary obstruction Qualified Code(s): K80.20 - Calculus of gallbladder without cholecystitis without obstruction (7) Cardiac disease Onset Date: 09/26/18 Current Visit: Yes Status: Chronic Treatment Summary: Abdominal pain (Acute) R10.9 CT scan with suspected gastroenteritis versus partial small bowel obstruction. Remained stable overnight. No diarrhea/constipation, abdominal pain resolved prior to which discharge. He was kept NPO, given IV fluids, general surgery consult placed. No surgical intervention at this time. His diet was started on clear liquids, he tolerated well. The advanced to GI soft, which he also tolerated well. He will be discharged with instructions to follow up with GI as an outpatient Cholelithiasis (Acute) K80.20 Ultrasound of the abdomen without any acute abnormalities. Fatty liver. He will have outpatient follow up with GI Cardiac disease (Chronic) Patient unsure of what kind of cardiac disease. States that he sees Dr. Stout in [facility] for cardiology. He remained stable from cardiac point of view. Diabetes mellitus (Chronic) E11.9. Stable. No medication changes made at this time. Sleep apnea (Chronic) G47.30 CPAP as needed at night for sleep apnea. - Disposition Discharge Date: 09/26/18 Condition: GOOD Consultations: General surgery Patient Discharge Instructions: Please follow up with the primary care physician in 2-3 days. Please return to the emergency room for worsening symptoms. Diet: AHA Activity: Ad lilliana Time Spent Managing Pts Care (In Minutes): 55
[2018-09-26] MEDS: ENOXAPARIN 40 MG/0.4 ML SQ SCH (16:21)
== END 2018-09-26 16:45 | disposition home or self-care (01) ==
LOC: ER 08:06 → ERHOLD 13:39 → 4TH 15:12
PROVIDERS: ADMIT Family Medicine; ATTEND Family Medicine
DX: R10.84 Generalized abdominal pain (principal); E11.65 Type 2 diabetes mellitus with hyperglycemia; G47.30 Sleep apnea, unspecified; F10.21 Alcohol dependence, in remission; K80.20 Calculus of gallbladder without cholecystitis without obstruction; I25.10 Atherosclerotic heart disease of native coronary artery without angina pectoris
CPT/HCPCS: 36415; 74022; 74176; 76377; 76700; 80048; 80053; 80076; 80307 ×8; 80320; 82962 ×4; 83690; 83735; 84100; 85025 ×2; 87088; 94760 ×2; 96361; 96374; 96375; 99285; G0378 ×2; J1650 ×2; J2270; J2405 ×3; J7030 ×5; 81003; 81015; 87086

== ENCOUNTER 2019-04-24 08:08 | Day surgery (SDC) | payer OTHER ==
--- OUTSIDE RECORDS SUMMARY | 2019-04-24 08:10 | XMS REPORT ---
:1955 Author Organization [facility] Care Team Providers Name Role Phone Valera, [...] Status Dosage System Date Metformin HCl ND 46135674180 1000 MG Orally Active 1 tablet Twice a day with meals Levothyroxine ND 82665722198 25 MCG Orally Active 1 tablet Sodium Once a day on an empty stomach in the morning Vitamin D-3 ND 50480836674 1000 UNIT Active 1 capsule Orally Once a day OneTouch Ultra ND 89654109086 - Active USE TO Test TEST BLOOD GLUCOSE TWICE A DAY ProAir HFA [facility] 78555681108 108 (90 Base) Jul 05, Active 2 puffs as MCG/ACT 2017 needed Inhalation every 6 hrs Januvia [facility] 81295945082 100 MG Orally Active 1 tablet Once a day Gabapentin [facility] 31803053189 300 MG Orally Active 1 capsule three times a day Revatio [facility] 11357711245 20 MG Orally Active 1 tablet Three times a day Multivitamin [facility] 433[address] - Orally Active not defined Ultracet [facility] 79141843206 37.5-325 MG Active 2 tablets Orally every 6 as needed hrs Anoro Ellipta [facility] 92371532364 62.5mcg/25 mcg Jul 05October Active 1 puff Orally once a 2017 day in AM Pravachol [facility] 20751849797 40 MG Orally Active 1 tablet Once a day Results No Known Results Immunizations Vaccine Administration Date Afluria Jul 05, 2018 Summary Purpose eClinicalWorks Submission
--- OUTSIDE RECORDS SUMMARY | 2019-04-24 08:10 | XMS REPORT ---
:1955 [facility] Team Providers Name Role Phone Valera, Na Provider Role Unavailable Allergies, Adverse Reactions, Alerts Substance Reaction Event Type N.K.D.A. Info Not Available Non Drug Allergy Problems Problem Type Condition Code Onset Dates Condition Status Assessment Obstructive apnea G47.33 Active Assessment COPD, mild J44.9 Active Assessment Neuropathy G62.9 Active Assessment Hypothyroidism, unspecified E03.9 Active Problem Hypertriglyceridemia E78.1 Active Assessment Hypertriglyceridemia E78.1 Active Problem Osteoporosis M81.0 Active Assessment Essential hypertension I10 Active Problem Neuropathy G62.9 Active Problem Essential hypertension I10 Active Problem Diabetes E11.9 Active Problem Calculus of gallbladder without K80.20 Active cholecystitis without obstruction Problem Obstructive apnea G47.33 Active Assessment Controlled type 2 diabetes mellitus E11.9 Active without complication, without long-term current use of insulin Assessment Calculus of gallbladder without K80.20 Active cholecystitis without obstruction Problem Fatty liver K76.0 Active Assessment Fatty liver K76.0 Active Problem Controlled type 2 diabetes mellitus E11.9 Active without complication, without long-term current use of insulin Problem 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 hypertension Problem COPD, mild J44.9 Active Problem At high risk for falls Z91.81 Active Problem Hypothyroidism, unspecified E03.9 Active Problem Polymyositis M33.20 Active Assessment Hospital discharge follow-up Z09 Active Problem Vertigo R42 Active Problem Obese E66.9 Active Problem Obstructive sleep apnea G47.33 Active Problem Chronic pain syndrome G89.4 Active Medications Medication Code Code Instructions Start End Status Dosage System Date Date Gabapentin [facility] 24882760624 300 MG Orally Active 1 capsule three times a day ProAir HFA [facility] 57493115604 108 (90 Base) Active 2 puffs as MCG/ACT needed Inhalation every 6 hrs OneTouch Ultra ND 58383528024 - Active USE TO Test TEST BLOOD GLUCOSE TWICE A DAY Ultracet [facility] 26032857838 37.5-325 MG Active 2 tablets Orally every 6 as needed hrs Metformin HCl [facility] 72460393211 1000 MG Orally Active 1 tablet Twice a day with meals Anoro Ellipta [facility] 53505476322 62.5mcg/25 mcg Active 1 puff Orally once a day in AM Pravachol [facility] 02683328993 40 MG Orally Active 1 tablet Once a day Vitamin D-3 [facility] 26245012847 1000 UNIT Active 1 capsule Orally Once a day Revatio [facility] 32541072212 20 MG Orally Active 1 tablet Three times a day Multivitamin [facility] 32445-32384 - Orally Active not defined Levothyroxine [facility] 15141180409 25 MCG Orally Active 1 tablet Sodium Once a day on an empty stomach in the morning Januvia [facility] 48132049633 100 MG Orally Active 1 tablet Once a day Results No Known Results Summary Purpose eClinicalWorks Submission
--- OUTSIDE RECORDS SUMMARY | 2019-04-24 08:10 | XMS REPORT ---
:1955 Author [facility] Care Team Providers Name Role Phone Valera, [...] Status Dosage System Date Date Metformin HCl [facility] 80694034377 1000 MG Orally Active 1 tablet Twice a day with meals OneTouch Ultra [facility] 57169236142 - Active USE TO Test TEST BLOOD GLUCOSE TWICE A DAY Multivitamin [facility] 64037-33077 - Orally Active not defined Revatio [facility] 40472155635 20 MG Orally Active 1 tablet Three times a day Levothyroxine ND 17105786785 25 MCG Orally Active 1 tablet Sodium Once a day on an empty stomach in the morning Pravachol [facility] 27067369989 40 MG Orally Active 1 tablet Once a day Gabapentin [facility] 20577383482 300 MG Orally Active 1 capsule three times a day Vitamin D-3 [facility] 39098916065 1000 UNIT Active 1 capsule Orally Once a day Terbinafine HCl [facility] 29077799401 250 MG Orally Inactive 1 tablet Once a day Ultracet [facility] 46657828369 37.5-325 MG Active 2 tablets Orally every 6 as needed hrs Januvia [facility] 20045841117 100 MG Orally Active 1 tablet Once a day Results No Known Results Summary Purpose eClinicalWorks Submission
--- OUTSIDE RECORDS SUMMARY | 2019-04-24 08:10 | XMS REPORT ---
:1955 [facility] Address [address] [place] [address] Dr. Machado [address] [place] [address] Care Team Providers Name Role Phone Unavailable Unavailable Unavailable Problems This patient has no known problems. Allergies, Adverse Reactions, Alerts This patient has no known allergies or adverse reactions. Medications This patient has no known medications.
--- OUTSIDE RECORDS SUMMARY | 2019-04-24 08:10 | XMS REPORT ---
:1955 Author [facility] Team Providers Name Role Phone Valera, Na Provider Role Unavailable Allergies, Adverse Reactions, Alerts Substance Reaction Event Type N.K.D.A. Info Not Available Non Drug Allergy Problems Problem Type Condition Code Onset Dates Condition Status Assessment Fatty liver K76.0 Active Assessment Obstructive apnea G47.33 Active Problem Hypertriglyceridemia E78.1 Active Assessment COPD, mild J44.9 Active Problem Osteoporosis M81.0 Active Assessment Neuropathy G62.9 Active Problem Neuropathy G62.9 Active Problem Essential hypertension I10 Active Problem Diabetes E11.9 Active Problem Calculus of gallbladder without K80.20 Active cholecystitis without obstruction Problem Obstructive apnea G47.33 Active Assessment Essential hypertension I10 Active Assessment Hypertriglyceridemia E78.1 Active Problem Fatty liver K76.0 Active Assessment Hypothyroidism, unspecified E03.9 Active Problem Controlled type 2 diabetes mellitus E11.9 Active without complication, without long-term current use of insulin Problem 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 hypertension Problem COPD, mild J44.9 Active Problem At high risk for falls Z91.81 Active Problem Hypothyroidism, unspecified E03.9 Active Problem Polymyositis M33.20 Active Assessment Controlled type 2 diabetes mellitus E11.9 Active without complication, without long-term current use of insulin Problem Vertigo R42 Active Problem Obese E66.9 Active Problem Obstructive sleep apnea G47.33 Active Problem Chronic pain syndrome G89.4 Active Medications Medication Code Code Instructions Start End Status Dosage System Date Date Multivitamin [facility] [address] - Orally Active not defined Vitamin D-3 ND 42138472783 1000 UNIT Active 1 capsule Orally Once a day Anoro Ellipta [facility] 39970354117 62.5mcg/25 mcg Sept Active 1 puff Orally once a 25, day in AM 2019 ProAir HFA ND 00036074989 108 (90 Base) Active 2 puffs as MCG/ACT needed Inhalation every 6 hrs Gabapentin ND 78469411739 300 MG Orally Active 1 capsule three times a day Levothyroxine [facility] 04770396856 25 MCG Orally Active 1 tablet on Sodium Once a day an empty stomach in the morning Pravachol [facility] 26211945720 40 MG Orally Active 1 tablet Once a day Revatio [facility] 92554456302 20 MG Orally Active 1 tablet Three times a day Glucometer [facility] 0 n/s n/s use as January 03, Active one directed 2018 Lancets [facility] 03417705894 - SC twice January 03, Active as directed daily 2018 Ultracet [facility] 90477949588 37.5-325 MG Active 2 tablets Orally every 6 as needed hrs OneTouch Ultra [facility] 46092710130 - Active USE TO TEST Test BLOOD GLUCOSE TWICE A DAY Metformin HCl [facility] 06014738378 1000 MG Orally Active 1 tablet Twice a day with meals Januvia [facility] 77411594966 100 MG Orally Active 1 tablet Once a day Lisinopril [facility] 53749173395 2.5 MG Orally January 03, Active 1 tablet Once a day 2018 Strips [facility] 0 sub Q twice January 03, December 28, Active as directed per day 2018 2019 Results No Known Results Summary Purpose eClinicalWorks Submission
[2019-04-24] MEDS ORDERED: NA CHLORIDE 0.9% 1,000 ML ONE (08:23)
[2019-04-24] MEDS ORDERED: PROPOFOL 200 MG/20 ML VIAL IV ONE ×2 (10:25)
[2019-04-24] MEDS ORDERED: LIDOCAINE 1% MPF 5 ML VIAL ONE (10:27)
[2019-04-24 11:31] VITALS: BP 123/80; TEMP 97.9; O2SAT 92
--- NOTE | 2019-04-25 00:18 | OP ---
Surgeon: Dipak Morales MD Procedure To Be Performed: Esophagogastroduodenoscopy. Performing Physician: Dipak Morales M.D. Reason For Procedure: Nausea, vomiting, abdominal pain, and acid reflux. Plan For Anesthesia: Monitored anesthesia care. Complexity: High due to patient's COPD requiring current oxygen. Technique: After obtaining informed consent from the patient, explaining risks and complications whi ch include, but are not limited to bleeding, infection, perforation, and anesthesia complication, pat ient was placed in the left lateral position. Sedation was given. From then on, the scope was advan iam through the mouth, and carefully guided up till the second portion of the duodenum. After the co mpletion of examination, scope and equipment were withdrawn and procedure terminated in a safe manner . Findings: Esophagus: No gross lesion seen in the entire esophagus. The Z-line was irregular at benji und 38 cm. Biopsies taken. Stomach: Mild to moderate striped erythema seen in the body and antrum. Biopsies taken. Duodenum: The bulb and second portion appeared normal. Complications: None. Tolerance To Anesthesia: Excellent. Postoperative Diagnosis: Moderate gastritis. Plan: 1.Await pathology results. 2.Start on oral PPI like Prilosec once a day. 3.Follow up in the GI clinic in 2 weeks to discuss biopsy results and further plan of care. US/MODL Voice ID: [id number] Report ID: [id number]
== END 2019-04-24 11:20 | disposition home or self-care (01) ==
LOC: OR 08:08
PROVIDERS: ATTEND Internal Medicine Gastroenterology
PROC: 0DB68ZX Excision of Stomach, Via Natural or Artificial Opening Endoscopic, Diagnostic (ICD-10-PCS; 2019-04-24)
PROC: 0DB58ZX Excision of Esophagus, Via Natural or Artificial Opening Endoscopic, Diagnostic (ICD-10-PCS; principal; 2019-04-24 08:30)
DX: K29.50 Unspecified chronic gastritis without bleeding (principal); K21.9 Gastro-esophageal reflux disease without esophagitis; K76.0 Fatty (change of) liver, not elsewhere classified; E11.9 Type 2 diabetes mellitus without complications; I10 Essential (primary) hypertension; I27.20 Pulmonary hypertension, unspecified; G47.33 Obstructive sleep apnea (adult) (pediatric); J44.9 Chronic obstructive pulmonary disease, unspecified; Z99.81 Dependence on supplemental oxygen; E05.90 Thyrotoxicosis, unspecified without thyrotoxic crisis or storm; E66.9 Obesity, unspecified; Z68.34 Body mass index [BMI] 34.0-34.9, adult; Z83.3 Family history of diabetes mellitus; Z82.49 Family history of ischemic heart disease and other diseases of the circulatory system
CPT/HCPCS: 88312; 82962; 88305; 43239; J2704; J7030

== ENCOUNTER 2019-05-23 11:02 | Day surgery (SDC) | payer OTHER ==
[2019-05-23] MEDS ORDERED: NA CHLORIDE 0.9% 1,000 ML ONE (11:57)
[2019-05-23] MEDS ORDERED: PROPOFOL 200 MG/20 ML VIAL IV ONE ×2 (12:52→12:53)
[2019-05-23] MEDS ORDERED: GLYCOPYRROLATE 0.2 MG/ML SYR ONE (13:39)
[2019-05-23 14:22] VITALS: BP 113/78; TEMP 98; O2SAT 97
--- OUTSIDE RECORDS SUMMARY | 2019-06-17 21:47 | XMS REPORT ---
:1955 [facility] Address [address] [place] [address] Dr. Machado [address] [place] [id number] Care Team Providers Name Role Phone Unavailable Unavailable Unavailable Problems This patient has no known problems. Allergies, Adverse Reactions, Alerts This patient has no known allergies or adverse reactions. Medications This patient has no known medications.
--- OUTSIDE RECORDS SUMMARY | 2019-06-17 21:47 | XMS REPORT ---
:1955 [facility] Team Providers Name Role Phone Valera, Na Provider Role Unavailable Allergies, Adverse Reactions, Alerts Substance Reaction Event Type N.K.D.A. Info Not Available Non Drug Allergy Problems Problem Type Condition Code Onset Dates Condition Status Assessment Elevated TSH R79.89 Active Assessment Needs flu shot Z23 Active Assessment Elevated liver enzymes R74.8 Active Assessment Fatty liver K76.0 Active Assessment Obstructive apnea G47.33 Active Problem Hypertriglyceridemia E78.1 Active Assessment Neuropathy G62.9 Active Problem Osteoporosis M81.0 Active Assessment Hypothyroidism, unspecified E03.9 Active Problem Neuropathy G62.9 Active Problem Essential hypertension I10 Active Problem Diabetes E11.9 Active Problem Calculus of gallbladder without K80.20 Active cholecystitis without obstruction Problem Obstructive apnea G47.33 Active Assessment Essential hypertension I10 Active Assessment Hypertriglyceridemia E78.1 Active Problem Fatty liver K76.0 Active Assessment COPD, mild J44.9 Active Problem Controlled type 2 diabetes mellitus [...] Start End Status Dosage System Date Date Ultracet [facility] 26548538285 37.5-325 MG Active 2 tablets Orally every 6 as needed hrs Multivitamin [facility] 386[address] - Orally Active not defined Levothyroxine [facility] 93981374958 50 MCG Orally Active 1 tablet on Sodium Once a day an empty stomach in the morning Anoro Ellipta [facility] 43583574172 62.5mcg/25 mcg Active 1 puff Orally once a day in AM Januvia [facility] 24386414069 100 MG Orally Active 1 tablet Once a day Glucometer ND 0 n/s n/s use as Active one directed Metformin HCl [facility] 54305802189 1000 MG Orally Active 1 tablet Twice a day with meals Strips ND 0 sub Q twice Active as directed per day Glimepiride [facility] 23008252665 4 MG Orally Apr 25, Active 1 tablet Once a day [address] [facility] 34439468531 40 MG Orally Active 1 tablet Once a day Gabapentin [facility] 26069690589 300 MG Orally Active 1 capsule three times a day Lisinopril [facility] 94906941793 2.5 MG Orally Active 1 tablet Once a day ProAir HFA [facility] 80737047902 108 (90 Base) Active 2 puffs as MCG/ACT needed Inhalation every [address] [facility] 57415426933 - [place] twice Active as directed daily Revatio [facility] 79631961283 20 MG Orally Active 1 tablet Three times a day Vitamin D-3 [facility] 56555234212 1000 UNIT Active 1 capsule Orally Once a day OneTouch Ultra [facility] 06274927575 - Active USE TO TEST Test BLOOD GLUCOSE TWICE A DAY Results No Known Results Immunizations Vaccine Administration Date Afluria single dose Apr 25, 2019 Summary Purpose eClinicalWorks Submission
--- NOTE | 2019-07-18 20:14 | OP ---
Surgeon: Dipak Morales MD Procedure To Be Performed: Colonoscopy. Indication For Procedure: Screening. Plan For Anesthesia: Monitored anesthesia care. Complexity: Average. Technique: After obtaining informed consent from the patient and explaining risks and complications, which include, but are limited to bleeding, infection, perforation, and anesthesia complication, pat ient was placed in the left lateral position and sedation was given. Digital rectal exam was perform ed. Scope inserted into the rectum and carefully guided up until the cecum. The cecum was identifie d by the appendiceal orifice and ileocecal valve. Then, the scope was gradually withdrawn while care fully examining the mucosa. Quality of prep was poor. Scope withdrawal time was 15 minutes. Findings: Diverticulosis, few small diverticula seen in the sigmoid. In the ascending colon, 2 poly ps from 6-7 mm in size were seen. These were sessile in nature, removed with hot biopsy polypectomy. At the hepatic flexure, a 5 mm sessile polyp was seen. This was removed by hot biopsy polypectomy. In the transverse colon, 2 polyps 4-5 mm in size were seen. These were also removed by hot biopsy polypectomy. Views of the colon were limited due to the prep. Retroflexion revealed grade 1 interna l hemorrhoids. Complications: None. Tolerance To Anesthesia: Excellent. Postoperative Diagnoses: Diverticulosis, polyps, poor prep. Plan: 1.Await pathology results. 2.Follow up in the GI clinic in 2 weeks. 3.Due to poor prep and polyp, staged colonoscopy recommended in 6-12 months. /RJ Voice ID: [id number] Report ID: [id number]
== END 2019-05-23 14:15 | disposition home or self-care (01) ==
LOC: OR 11:02
PROVIDERS: ATTEND Internal Medicine Gastroenterology
PROC: 0DBL8ZX Excision of Transverse Colon, Via Natural or Artificial Opening Endoscopic, Diagnostic (ICD-10-PCS; 2019-05-23)
PROC: 0DBK8ZX Excision of Ascending Colon, Via Natural or Artificial Opening Endoscopic, Diagnostic (ICD-10-PCS; principal; 2019-05-23 12:00)
DX: Z12.11 Encounter for screening for malignant neoplasm of colon (principal); D12.2 Benign neoplasm of ascending colon; D12.3 Benign neoplasm of transverse colon; K63.5 Polyp of colon; K57.30 Diverticulosis of large intestine without perforation or abscess without bleeding; K64.8 Other hemorrhoids; E11.9 Type 2 diabetes mellitus without complications; I10 Essential (primary) hypertension; K21.9 Gastro-esophageal reflux disease without esophagitis; J44.9 Chronic obstructive pulmonary disease, unspecified
CPT/HCPCS: 36415; 82962; 88305; 45384; J2704 ×2; J7030

== ENCOUNTER 2019-08-23 01:51 | Emergency (ER) | payer OTHER ==
--- OUTSIDE RECORDS SUMMARY | 2019-08-23 01:53 | XMS REPORT ---
:1955 [facility] [address] [place] [address] Dr. Machado [address] [place] [id number] Care Team Providers Name Role Phone Unavailable Unavailable Unavailable Problems This patient has no known problems. Allergies, Adverse Reactions, Alerts This patient has no known allergies or adverse reactions. Medications This patient has no known medications.
--- OUTSIDE RECORDS SUMMARY | 2019-08-23 01:54 | XMS REPORT ---
:1955 [facility] Team Providers Name Role Phone Valera, Na Provider Role Unavailable Allergies, Adverse Reactions, Alerts Substance Reaction Event Type N.K.D.A. Info Not Available Non Drug Allergy Problems Problem Type Condition Code Onset Dates Condition Status Assessment Microalbuminuria R80.9 Active Assessment Elevated TSH R79.89 Active Assessment Screening for prostate cancer Z12.5 Active Assessment Seasonal allergic rhinitis, J30.2 Active unspecified trigger Assessment Fatty liver K76.0 Active Assessment Elevated liver enzymes R74.8 Active Assessment Obstructive apnea G47.33 Active Assessment Neuropathy G62.9 Active Problem Osteoporosis M81.0 Active Assessment COPD, mild J44.9 Active Problem Neuropathy G62.9 Active Assessment Hypertriglyceridemia E78.1 Active Problem Diabetes E11.9 Active Problem 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 hypertension Problem Essential hypertension I10 Active Problem Fatty liver K76.0 Active Problem Calculus of gallbladder without K80.20 Active cholecystitis without obstruction Assessment Controlled type 2 diabetes mellitus E11.9 Active without complication, without long-term current use of insulin Assessment Essential hypertension I10 Active Problem Seasonal allergic rhinitis, J30.2 Active unspecified trigger Assessment Hypothyroidism, unspecified E03.9 Active Problem At high risk for falls Z91.81 Active Problem Controlled type 2 diabetes mellitus E11.9 Active without complication, without long-term current use of insulin Problem Obstructive apnea G47.33 Active Problem COPD, mild J44.9 Active Problem Polymyositis M33.20 Active Problem Obstructive sleep apnea G47.33 Active Problem Hypothyroidism, unspecified E03.9 Active Problem Obese E66.9 Active Problem Hypertriglyceridemia E78.1 Active Problem Chronic pain syndrome G89.4 Active Problem Vertigo R42 Active Medications Medication Code Code Instructions Start End Status Dosage System Date Date Pravachol [facility] 67024875314 40 MG Orally Active 1 tablet Once a day Ultracet [facility] 30831873999 37.5-325 MG Active 2 tablets Orally every 6 as needed hrs Lancets [facility] 45660670812 - [place] twice Active as directed daily ProAir HFA [facility] 67182902590 108 (90 Base) Active 2 puffs as MCG/ACT needed Inhalation every 6 hrs Vitamin D-3 [facility] 16522392061 1000 UNIT Active 1 capsule Orally Once a day Glucometer [facility] 56969830619 n/s n/s use as Active one directed OneTouch Ultra [facility] 22909614023 - Active USE TO TEST Test BLOOD GLUCOSE TWICE A DAY Glimepiride [facility] 71736563521 4 MG Orally Active 1 tablet Once a day with food Strips [facility] 0 sub Q twice Active as directed per day Januvia [facility] 28794968455 100 MG Orally Active 1 tablet Once a day Metformin HCl [facility] 76532764329 1000 MG Orally Active 1 tablet Twice a day with meals Levothyroxine [facility] 38587842640 75 MCG Orally Active 1 tablet on Sodium Once a day an empty stomach in the morning Revatio [facility] 60334758654 20 MG Orally Active 1 tablet Three times a day Anoro Ellipta [facility] 65484764704 62.5mcg/25 mcg Active 1 puff Orally once a day in AM Cetirizine HCl [facility] 75423680959 10 MG Orally Jul 25January Active 1 tablet Once a day 2018 Gabapentin [facility] 27100166273 300 MG Orally Active 1 capsule three times a day Multivitamin [facility] 76127-[address]155 - Orally Active not defined Lisinopril [facility] 82945333824 2.5 MG Orally Active 1 tablet Once a day Results No Known Results Summary Purpose eClinicalWorks Submission
--- OUTSIDE RECORDS SUMMARY | 2019-08-23 01:54 | XMS REPORT ---
:1955 Author Organization [employer]Clinical[employer] Care Team Providers Name Role Phone Valera, Na Provider Role Unavailable Allergies No Known Allergies Problems Problem Type Condition Code Onset Dates Condition Status Problem Neuropathy G62.9 Active Problem Essential hypertension I10 Active Problem Diabetes E11.9 Active Problem Calculus of gallbladder without K80.20 Active cholecystitis without obstruction Assessment Hypothyroidism, unspecified E03.9 Active Problem Obstructive apnea G47.33 Active Assessment Essential hypertension I10 Active Assessment Controlled type 2 diabetes mellitus E11.9 Active without complication, without long-term current use of insulin Problem Fatty liver K76.0 Active Problem Controlled type 2 diabetes mellitus E11.9 Active without complication, without long-term current use of insulin Problem 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 hypertension Problem COPD, mild J44.9 Active Problem At high risk for falls Z91.81 Active Problem Hypothyroidism, unspecified E03.9 Active Problem Polymyositis M33.20 Active Assessment Hypertriglyceridemia E78.1 Active Problem Vertigo R42 Active Problem Obese E66.9 Active Assessment Elevated liver enzymes R74.8 Active Problem Obstructive sleep apnea G47.33 Active Problem Hypertriglyceridemia E78.1 Active Assessment Elevated TSH R79.89 Active Problem Chronic pain syndrome G89.4 Active Problem Osteoporosis M81.0 Active Medications No Known Medications Results No Known Results Summary Purpose eClinicalWorks Submission
--- OUTSIDE RECORDS SUMMARY | 2019-08-23 01:54 | XMS REPORT ---
:1955 [facility] Team Providers Name Role Phone [...] End Status Dosage System Date Date Ultracet [facility] 31190741000 37.5-325 MG Active 2 tablets Orally every 6 as needed hrs Multivitamin [facility] 57385-[address] - Orally Active not defined Levothyroxine [facility] 42214697745 50 MCG Orally Active 1 tablet on Sodium Once a day an empty stomach in the morning Anoro Ellipta [facility] 96402429001 62.5mcg/25 mcg Active 1 puff Orally once a day in AM Januvia [facility] 44245789406 100 MG Orally Active 1 tablet Once a day Glucometer ND 0 n/s n/s use as Active one directed Metformin HCl [facility] 65126987888 1000 MG Orally Active 1 tablet Twice a day with meals Strips ND 0 sub Q twice Active as directed per day Glimepiride [facility] 88006440467 4 MG Orally Apr 25, Active 1 tablet Once a day 2018 with food Pravachol [facility] 33709350180 40 MG Orally Active 1 tablet Once a day Gabapentin [facility] 27515209287 300 MG Orally Active 1 capsule three times a day Lisinopril [facility] 20854786647 2.5 MG Orally Active 1 tablet Once a day ProAir HFA [facility] 75748160551 108 (90 Base) Active 2 puffs as MCG/ACT needed Inhalation every 6 hrs Lancets [facility] 98207622360 - [place] twice Active as directed daily Revatio [facility] 84687354110 20 MG Orally Active 1 tablet Three times a day Vitamin D-3 [facility] 73327173475 1000 UNIT Active 1 capsule Orally Once a day OneTouch Ultra [facility] 50051344816 - Active USE TO TEST Test BLOOD GLUCOSE TWICE A DAY Results No Known Results Immunizations Vaccine Administration Date Afluria single dose Apr 25, 2019 Summary Purpose eClinicalWorks Submission
[2019-08-23] MEDS ORDERED: TRAMADOL HCL 50 MG TAB ONE (02:13)
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
[2019-08-23 08:09] VITALS: BP 120/80; O2SAT 97
--- NOTE | 2019-08-23 08:45 | RAD REPORT ---
EXAM DESCRIPTION: RAD - Chest Single View - 08/23/2019 2:38 am CLINICAL HISTORY: COUGH Chest pain. COMPARISON: Chest Pa And Lat (2 Views) dated 10/05/2018; Abdomen Acute Series dated 09/25/2018; CHEST PA AND LAT 2 VIEW dated 05/28/2009; CHEST SINGLE VIEW dated 01/23/2009 FINDINGS: Portable technique limits examination quality. The lungs are underinflated with significantly enlarged pulmonary arteries bilaterally suggesting pul monary arterial hypertension. The heart is normal in size. No displaced fractures. IMPRESSION: Underinflated lungs. Pulmonary arterial hypertension.
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
== END 2019-08-23 03:55 | disposition home or self-care (01) ==
LOC: ER 01:51
DX: S13.4XXA Sprain of ligaments of cervical spine, initial encounter (principal); V43.52XA Car driver injured in collision with other type car in traffic accident, initial encounter; Y93.89 Activity, other specified; Y92.410 Unspecified street and highway as the place of occurrence of the external cause
CPT/HCPCS: 71045; 72125; 99284

== ENCOUNTER 2021-06-14 14:03 | Emergency (ER) | payer OTHER ==
[2021-06-14 14:58] LABS: Urine Blood 3+ (Negative); Urine Glucose Negative (Negative); Urine Protein Negative (Negative); Urine pH 5.5 (5.0-7.0)
[2021-06-14] MEDS ORDERED: NA CHLORIDE 0.9% 500 ML ONE (15:15)
[2021-06-14] MEDS ORDERED: CEFTRIAXONE 1000 MG/VIAL ONE (15:15)
[2021-06-14 15:19] LABS: Urine Bacteria 20-50 /HPF (NONE SEEN)
[2021-06-14 15:28] LABS: Absolute Lymphocytes (CBC) 1.5 K/uL (0.7-4.9); Basophils % 0.7 % (0-1.3); Lymphocytes % 10.7 % (15.3-44.8); MPV 8.9 fL (7.6-11.3); RBC Red Blood Cell Count 5.07 M/uL (4.33-5.43)
[2021-06-14 15:38] LABS: Albumin 3.5 g/dL (3.4-5.0); BUN Blood Urea Nitrogen 8 mg/dL (7-18); Bicarbonate 30 mmol/L (21-32); Glucose Level 213 mg/dL (74-106); Lipase 60 U/L (73-393); Sodium Level 139 mmol/L (136-145)
[2021-06-14 15:39] LABS: Potassium 3.9 mmol/L (3.5-5.1)
[2021-06-14 15:43] LABS: ALT/SGPT 38 U/L (12-78); Alkaline Phosphatase 75 U/L (45-117); Bilirubin Direct 0.2 mg/dL (0-0.2); Bilirubin Total 0.7 mg/dL (0.2-1.0)
[2021-06-14 15:44] LABS: AST/SGOT 36 U/L (15-37)
--- NOTE | 2021-06-14 15:58 | RAD REPORT ---
EXAM DESCRIPTION: CTAbdomen Pelvis W Contrast - 06/14/2021 3:45 pm CLINICAL HISTORY: Flank pain;Fever COMPARISON: <Comparisons> TECHNIQUE: CT of the abdomen and pelvis was performed. All CT scans are performed using dose optimization technique as appropriate and may include automated exposure control or mA/KV adjustment according to patient size. FINDINGS: Lower chest: Atelectasis at the right lung base. Liver: No acute abnormality or suspicious lesions. Biliary: No biliary ductal dilatation. Stomach: No significant focal abnormality. Duodenum: No significant focal abnormality. Pancreas: No significant abnormality. Spleen: No significant abnormality. Adrenal: No suspicious lesions. Kidney/ureter: No hydronephrosis. No renal calculi. Retroperitoneum: No retroperitoneal adenopathy. Vascular: No aneurysm. Bowel: Portions of the bowel are not well evaluated due to motion artifact.. Peritoneum: No ascites or free air. Bladder: Grossly unremarkable. Reproductive: No adnexal masses. Bones: No acute fracture. Remote appearing L2 compression fracture. Other: n/a IMPRESSION: No acute intra-abdominal or pelvic finding.
--- NOTE | 2021-06-14 16:46 | RAD REPORT ---
EXAM DESCRIPTION: RAD - Chest Single View - 06/14/2021 4:02 pm CLINICAL HISTORY: Cough;Fever COMPARISON: Chest Single View dated 08/23/2019; Chest Pa And Lat (2 Views) dated 10/05/2018; Abdomen A cute Series dated 09/25/2018; CHEST PA AND LAT 2 VIEW dated 05/28/2009 FINDINGS: Lines: None. Lungs: No evidence of edema or pneumonia. Low lung volumes. Pleural: No significant pleural effusions or pneumothorax. Cardiac: The heart size is within normal limits. Bones: No acute fractures. Other: Enlarged main pulmonary artery is. IMPRESSION: No acute cardiopulmonary disease.
[2021-06-14 16:49] LABS: SARS-COV-2 RT PCR NEGATIVE (NEGATIVE)
--- NOTE | 2021-06-14 17:00 | ER ---
Nurse's Notes [facility] Name: Antony Johnson Age: 66 yrs Sex: Male : 1955 Arrival Date: 06/14/2021 Time: 14:09 Bed 19 Private MD: Kendal Valera Diagnosis: UTI/ Urinary tract infection, site not specified;Acute upper respiratory infection, unspecified Presentation: 06/14 14:35 Chief complaint: Patient states: This morning pt states burning upon urination with vg1 blood and frequency. Denies ABD pain or NVD, but states Right flank pain. Also states has been coughing for about three days. Stated took a breathing treatment yesterday but cough is still there. Pt also uses CPAP at home every night. Coronavirus screen: Vaccine status: Patient reports receiving the 2nd dose of the covid vaccine. Client denies travel out of the [place] in the last 14 days. Ebola Screen: Patient negative for fever greater than or equal to 101.5 degrees Fahrenheit, and additional compatible Ebola Virus Disease symptoms. Initial Sepsis Screen: Does the patient meet any 2 criteria? RR > 20 per min. Does the patient have a suspected source of infection? No. Patient's initial sepsis screen is negative. Risk Assessment: Do you want to hurt yourself or someone else? Patient reports no desire to harm self or others. Onset of symptoms was June 14, 2021. 14:35 Method Of Arrival: Wheelchair vg1 14:35 Acuity: GINO 3 vg1 Triage Assessment: 14:37 General: Appears in no apparent distress. uncomfortable, Behavior is calm, cooperative. vg1 Pain: Complains of pain in Right flank. Historical: - Allergies: 14:37 No Known Allergies; vg1 - Home Meds: 14:37 gabapentin 300 mg Oral cap 1 cap 3 times per day [Active]; Januvia 100 mg Oral tab 1 vg1 tab once daily [Active]; levothyroxine 25 mcg tab 1 tab once daily [Active]; metformin 1,000 mg Oral tab 1 tab 2 times per day [Active]; pravastatin 40 mg Oral tab 1 tab once daily [Active]; furosemide 20 mg Oral tab 1 tab once daily [Active]; ProAir HFA 90 mcg/actuation inhalation HFAA 2 puffs every 6 hours [Active]; tramadol-acetaminophen 37.5-325 mg Oral tab 2 tabs three times a day [Active]; Anoro Ellipta 62.5-25 mcg/actuation inhalation dsdv 1 puff once daily [Active]; - PMHx: 14:37 Diabetes - NIDDM; LIVER PROBLEMS; Hypothyroidism; Hypercholesterolemia; vg1 - Immunization history:: Adult Immunizations up to date, Client reports receiving the 2nd dose of the Covid vaccine. - Social history:: Smoking status: Patient denies any tobacco usage or history of. Screenin:40 Abuse screen: Denies threats or abuse. Nutritional screening: No deficits noted. sl2 Tuberculosis screening: No symptoms or risk factors identified. Never had TB. Possible symptoms: None recent fever, recent night sweats, cough for more than 2 weeks, Risk factors: None contact with infectious person. Fall Risk Secondary diagnosis (15 points) IV access (20 points). Ambulatory Aid- Crutches/Cane/Walker (15 pts). Gait- Impaired (20 pts.). Mental Status- Oriented to own ability (0 pts). Total Brown Fall Scale indicates Low Risk Score (25-44 pts). Fall prevention measures have been instituted. Side Rails Up X 2 Placed close to Nursing Station Frequent Obs/Assesments occuring Family Present and informed to notify staff if they need to leave bedside. Assessment: 14:40 General: Appears uncomfortable, well groomed, well developed, Behavior is calm, sl2 cooperative, Reports dysuria. 14:40 Pain: Complains of pain in penile pain with urination. Neuro: No deficits noted. Level sl2 of Consciousness is awake, alert, obeys commands, Oriented to Group Art Supervisor are equal bilaterally. Cardiovascular: No deficits noted. Reports. Respiratory: No deficits noted. Reports Airway is patent Trachea midline Respiratory effort is even, unlabored, Respiratory pattern is regular, symmetrical, Breath sounds are clear bilaterally. GI: No deficits noted. No signs and/or symptoms were reported involving the gastrointestinal system. : Reports burning with urination, urgency, urinary frequency. EENT: No deficits noted. No signs and/or symptoms were reported regarding the EENT system. Derm: No deficits noted. No signs and/or symptoms reported regarding the dermatologic system. Musculoskeletal: No deficits noted. No signs and/or symptoms reported regarding the musculoskeletal system. 16:01 Reassessment: CAT scan and CXR completed. sl2 Vital Signs: 14:35 BP 114 / 68; Pulse 90; Resp 22; Temp 98.9; Pulse Ox 93% ; Weight 83.91 kg; Height 5 ft. vg1 2 in. (157.48 cm); Pain 5/10; 15:00 BP 116 / 64; Pulse 92; Resp 20; Temp 98.8; Pulse Ox 94% on 2 lpm NC; sl2 16:49 BP 116 / 75; Pulse 90; Resp 20; Temp 98.4(O); Pulse Ox 96% on 4 lpm NC; mh5 14:35 Body Mass Index 33.84 (83.91 kg, 157.48 cm) vg1 ED Course: 14:09 Patient arrived in ED. mr 14:10 Kendal Valera MD is Private Physician. mr 14:37 Triage completed. vg1 14:37 Arm band placed on. vg1 14:47 Surjit Wang NP is PHCP. pm1 14:47 Aura Gamez MD is Attending Physician. pm1 14:57 Patient has correct armband on for positive identification. Bed in low position. Call [facility] light in reach. Side rails up X 1. Adult w/ patient. Warm blanket given. Pulse ox on. NIBP on. 14:57 Urine collected: clean catch specimen, blood tinged. mh5 14:58 Urine Microscopic Only Sent. mh5 15:11 Jessica Jane, RN is Primary Nurse. sl2 15:21 Basic Metabolic Panel Sent. mh5 15:21 CBC with Diff Sent. mh5 15:21 Hepatic Function Sent. mh5 15:21 Lipase Sent. 5 15:21 Urine Culture Sent. 5 15:21 Strep Sent. 5 15:21 Initial lab(s) drawn, by de, sent to lab. COVID swab sent to lab. Flu and/or RSV swab 5 sent to lab. Strep swab sent to lab. Missed attempt(s): 20 gauge in left antecubital area. 15:[address] via stretcher. sl2 15:45 CT Abd/Pelvis - IV Contrast Only In Process Unspecified. EDMS 16:02 Chest Single View XRAY In Process Unspecified. EDMS 17:14 No provider procedures requiring assistance completed. IV discontinued, intact, sl2 bleeding controlled, No redness/swelling at site. Pressure dressing applied. Administered Medications: 15:25 Drug: Rocephin (cefTRIAXone) 1 grams Route: IV; Rate: calculated rate; Site: left hand; sl2 16:30 Follow up: Response: No adverse reaction sl2 16:30 Follow up: IV Status: Completed infusion; IV Intake: 10ml sl2 15:25 Drug: NS 0.9% 500 ml Route: IV; Rate: bolus; Site: left hand; sl2 16:32 Follow up: Response: No adverse reaction; IV Status: Completed infusion; IV Intake: sl2 500ml Intake: 16:30 IV: 10ml; Total: 10ml. sl2 16:32 IV: 500ml; Total: 510ml. 2 Outcome: 17:00 Discharge ordered by MD. pm1 17:14 Discharged to home via wheelchair, with family. sl2 17:14 Condition: stable 17:14 Discharge instructions given to patient, family, Instructed on discharge instructions, follow up and referral plans. no drinking with medication, medication usage, Demonstrated understanding of instructions, follow-up care, medications, Prescriptions given X 2. 17:15 Patient left the ED. sl2 Addendum: 06/20/2021 08:25 Addendum: Culture Results: Positive urine culture. Phone call Attempt #1 Spoke with s s patient who reports that he does not have any s/s of UTI and he feels 100% better and verbalizes understanding importance of following up with PCP. Signatures: Dispatcher [facility] MalinKourtney Shelby, Surjit White RN, MARIAN SERVICE MECHANIC 1 Urszula Moreau [facility] Cherry Capps RN RN 1 Jessica Jane RN RN sl2 Corrections: (The following items were deleted from the chart) 06/14 16:03 15:21 CORONAVIRUS+MR.LAB.BRZ drawn and sent. [address] 16:03 15:21 Influenza Screen (A \T\ B)+BA.LAB.BRZ drawn and sent. [address]
--- NOTE | 2021-06-14 17:00 | EDPHYS ---
Physician Documentation [facility] Name: Antony Johnson Age: 66 yrs Sex: Male : 1955 Arrival Date: 06/14/2021 Time: 14:09 Bed 19 Private MD: Kendal Valera ED Physician Aura Gamez HPI: 06/14 15:52 This 66 yrs old Male presents to ER via Wheelchair with complaints of Fever, pm1 Urinary Problem. 15:52 The patient reports fever, not measured (subjective), chills onset yesterday. Woke up pm1 to today with burning with urination and hematuria. Modifying factors: there are no obvious modifying factors. Associated signs and symptoms: Pertinent positives: cough, right flank pain, Pertinent negatives: abdominal pain, chest pain, shortness of breath. The patient has not experienced similar symptoms in the past. The patient has not recently seen a physician. Historical: - Allergies: 14:37 No Known Allergies; vg1 - Home Meds: 14:37 gabapentin 300 mg Oral cap 1 cap 3 times per day [Active]; Januvia 100 mg Oral tab 1 vg1 tab once daily [Active]; levothyroxine 25 mcg tab 1 tab once daily [Active]; metformin 1,000 mg Oral tab 1 tab 2 times per day [Active]; pravastatin 40 mg Oral tab 1 tab once daily [Active]; furosemide 20 mg Oral tab 1 tab once daily [Active]; ProAir HFA 90 mcg/actuation inhalation HFAA 2 puffs every 6 hours [Active]; tramadol-acetaminophen 37.5-325 mg Oral tab 2 tabs three times a day [Active]; Anoro Ellipta 62.5-25 mcg/actuation inhalation dsdv 1 puff once daily [Active]; - PMHx: 14:37 Diabetes - NIDDM; LIVER PROBLEMS; Hypothyroidism; Hypercholesterolemia; vg1 - Immunization history:: Adult Immunizations up to date, Client reports receiving the 2nd dose of the Covid vaccine. - Social history:: Smoking status: Patient denies any tobacco usage or history of. ROS: 15:52 ENT: Negative for injury, pain, and discharge, Cardiovascular: Negative for chest pain, pm1 palpitations, and edema. 15:52 Abdomen/GI: Negative for abdominal pain, nausea, vomiting, diarrhea, and constipation. 15:52 MS/Extremity: Negative for injury and deformity, Skin: Negative for injury, rash, and discoloration, Neuro: Negative for headache, weakness, numbness, tingling, and seizure. 15:52 Constitutional: Positive for chills, fever, Negative for poor PO intake. 15:52 Respiratory: Positive for cough, Negative for shortness of breath, sputum production, wheezing. 15:52 Back: Positive for flank pain, on the right. 15:52 : Positive for flank pain, hematuria, burning with urination. 15:52 All other systems are negative. Exam: 15:52 Constitutional: This is a well developed, well nourished patient who is awake, alert, pm1 and in no acute distress. Head/Face: Normocephalic, atraumatic. 15:52 Back: No spinal tenderness. No costovertebral tenderness. Full range of motion. Skin: Warm, dry with normal turgor. Normal color with no rashes, no lesions, and no evidence of cellulitis. MS/ Extremity: Pulses equal, no cyanosis. Neurovascular intact. Full, normal range of motion. 15:52 Cardiovascular: Exam negative for acute changes, Rate: normal, Rhythm: Pulses: no pulse deficits are appreciated. 15:52 Respiratory: Exam negative for acute changes, respiratory distress, shortness of breath, Breath sounds: are clear throughout. 15:52 Abdomen/GI: Inspection: obese Palpation: abdomen is soft and non-tender, in all quadrants. 15:52 Neuro: Exam negative for acute changes, Orientation: is normal, Mentation: is normal, Motor: is normal, moves all fours. Vital Signs: 14:35 BP 114 / 68; Pulse 90; Resp 22; Temp 98.9; Pulse Ox 93% ; Weight 83.91 kg; Height 5 ft. vg1 2 in. (157.48 cm); Pain 5/10; 15:00 BP 116 / 64; Pulse 92; Resp 20; Temp 98.8; Pulse Ox 94% on 2 lpm NC; sl2 16:49 BP 116 / 75; Pulse 90; Resp 20; Temp 98.4(O); Pulse Ox 96% on 4 lpm NC; mh5 14:35 Body Mass Index 33.84 (83.91 kg, 157.48 cm) vg1 MDM: 14:55 Patient medically screened. pm1 16:59 Data reviewed: vital signs. Data interpreted: Pulse oximetry: on room air is 96 %. pm1 Interpretation: normal. Counseling: I had a detailed discussion with the patient and/or guardian regarding: the historical points, exam findings, and any diagnostic results supporting the discharge/admit diagnosis, lab results, radiology results, the need for outpatient follow up, to return to the emergency department if symptoms worsen or persist or if there are any questions or concerns that arise at home. 06/14 14:57 Order name: Urine Microscopic Only; Complete Time: 15:40 pm1 06/14 14:57 Order name: Basic Metabolic Panel; Complete Time: 15:52 pm1 06/14 14:57 Order name: CBC with Diff; Complete Time: 15:40 pm1 06/14 14:57 Order name: Hepatic Function; Complete Time: 15:52 pm1 06/14 14:57 Order name: Lipase; Complete Time: 15:52 pm1 06/14 14:57 Order name: Urine Dipstick-Ancillary; Complete Time: 15:04 [facility] 06/14 14:57 Order name: Chest Single View XRAY; Complete Time: 16:48 pm1 06/14 14:57 Order name: CT Abd/Pelvis - IV Contrast Only; Complete Time: 16:07 pm1 06/14 14:58 Order name: Strep; Complete Time: 16:46 pm1 06/14 15:19 Order name: Urine Culture [facility] 06/14 16:03 Order name: COVID-19/FLU A+B; Complete Time: 16:58 [facility] 06/14 16:33 Order name: Throat Culture [facility] 06/14 14:57 Order name: Urine Dipstick-Ancillary (obtain specimen); Complete Time: 14:58 pm1 06/14 14:57 Order name: IV Saline Lock; Complete Time: 15:34 pm1 06/14 14:57 Order name: Labs collected and sent; Complete Time: 15:21 pm1 Administered Medications: 15:25 Drug: Rocephin (cefTRIAXone) 1 grams Route: IV; Rate: calculated rate; Site: left hand; sl2 16:30 Follow up: Response: No adverse reaction sl2 16:30 Follow up: IV Status: Completed infusion; IV Intake: 10ml sl2 15:25 Drug: NS 0.9% 500 ml Route: IV; Rate: bolus; Site: left hand; sl2 16:32 Follow up: Response: No adverse reaction; IV Status: Completed infusion; IV Intake: sl2 500ml Disposition Summary: 06/14/21 17:00 Discharge Ordered Location: Home pm1 Problem: new pm1 Symptoms: have improved pm1 Condition: Stable pm1 Diagnosis - UTI/ Urinary tract infection, site not specified pm1 - Acute upper respiratory infection, unspecified pm1 Followup: pm1 - With: Emergency Department - When: As needed - Reason: Worsening of condition Followup: pm1 - With: Private Physician - When: 2 - 3 days - Reason: Recheck today's complaints, Continuance of care, Re-evaluation by your physician Discharge Instructions: - Discharge Summary Sheet pm1 - Upper Respiratory Infection, Adult pm1 - Urinary Tract Infection, Adult pm1 Forms: - Medication Reconciliation Form pm1 - Thank You Letter pm1 - Antibiotic Education pm1 - Prescription Opioid Use pm1 Prescriptions: - Bactrim DS 800-160 mg Oral Tablet - take 1 tablet by ORAL route every 12 hours for 10 days; 20 tablet; Refills: 0, pm1 Product Selection Permitted - Pyridium 200 mg Oral Tablet - take 1 tablet by ORAL route every 8 hours for 3 days; 9 tablet; Refills: 0, pm1 Product Selection Permitted Addendum: 06/23/2021 05:26 Co-signature as Attending Physician, Aura robertson a2 Signatures: Dispatcher [employer] EDMS Surjit Wang, KNOCKDOWN WORKER KNOCKDOWN WORKER pm1 Aura Gamez MD MD ma2 Cherry Capps RN RN 1 Jessica Jane RN RN sl2 Corrections: (The following items were deleted from the chart) 11 16:03 14:58 Influenza Screen (A \T\ B)+BA.LAB.BRZ ordered. EDMS EDMS 16:03 14:58 CORONAVIRUS+MR.LAB.BRZ ordered. EDMS EDMS
[2021-06-14 17:43] VITALS: BP 116/75; TEMP 98.4; O2SAT 96
--- OUTSIDE RECORDS SUMMARY | 2021-06-21 14:25 | XMS REPORT | Continuity of Care Document ---
:1955 Author Organization [facility] t Address [address] [place] [address] Care Team Providers Name Role Phone Pcp, Does Not Have A Primary Care Physician Jon GARCIA Attending Clinician Unavailable Gabriela JOHNSON Attending Clinician Perlita SHINE Attending Clinician Unavailable Jon Garcia MD Attending Clinician Vtc-Lab Attending Clinician Unavailable Doctor Unassigned, Name Attending Clinician Unavailable Payers Payer Name Policy Type Policy Number Effective Date Expiration Date S ource Problems Condition Condition Condition Status Onset Resolution Last Treating Co mments Source Name Details Category Date Date Treatment Clinician Date PAH PAH Disease Active 2013-08 Univers (pulmonary (pulmonary 1-21 it y of artery artery 00:00: [place] hypertensi hypertensi 00 Me dical on) with on) with Branch connective connective 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 2-20 it y of athy athy 00:00: [place] 00 Medical Branch History of History of Disease Active U nivers ETOH abuse ETOH abuse 3-07 it y of 00:00: [place] 00 Medical Branch History of History of Disease Active 2011-08 U nivers rotator rotator 2-08 it[place] of cuff tear cuff [place] History of History of Disease Active 2011-08 U nivers rotator rotator 2-08 [place] of cuff tear cuff [place] 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 2-06 ity of 00:00: Medical Branch History of History of Disease Active U nivers poliomyeli poliomyeli 5-25 it y of tis tis 00:00: Medical Branch Pulmonary Pulmonary Disease Active Uni vers hypertensi hypertensi 5-19 it y of on on 00:00: Medical Branch JESUS JESUS Disease Active Univers (obstructi (obstructi 5-19 it y of ve sleep ve sleep 00:00: [place] apnea) apnea) 00 Medical Branch Encounter Encounter Disease Active Uni vers for for 5-19 [place] of long-term [place] ([place] Medi antoine use of use of Branch steroids steroids Pulmonary Pulmonary Disease Active Uni vers artery artery 3-04 ity of hypertens[place] 00 Medical associated associated Br anch with with connective connective tissue tissue disease disease Chronic Chronic Disease Active Univers pain pain 1-24 ity of syndrome syndrome 00:00: [place] [facility] Polymyosit Polymyosit Disease Active U nivers is is ity of [place] [facility] Muscle Muscle Disease Active Univers weakness weakness ity of (generaliz (generaliz [place] ed[place] ed) Medical Branch Polyneurop Polyneurop Disease Active Overview : Univers athy in athy in [place] ity o f other other g of this [place] diseases diseases note Medica l classified classified might be Branch elsewhere elsewhere different from the original. Likely patient has a component of alcoholic neuropath y Muscular Muscular Disease Active Overview: Un cornelia wasting wasting [place] it[place] o f and disuse and disuse g of this [place] atrophy, atrophy, note Medica l not not might be Branch elsewhere elsewhere different classified classified from the original. Including supraspin atus fatty degenerat ion and atrophy by MRI Rotator Rotator Disease Active Overview: Univ ers cuff cuff [place] ity of (capsule) (capsule) g of this [place] sprain sprain note Medical might be Branch different from the original. History of rotator cuff tear in right shoulder Allergies, Adverse Reactions, Alerts Allergy Allergy Status Severity Reaction(s) Onset Inactive Treating Comm ents Source Name Type Date Date Clinician NO KNOWN Drug Active Univers ALLERGIE Class ity of S [facility] Social History Social Habit Start Date Stop Date Quantity Comments Source Exposure to Not sure University of SARS-CoV-2 [place] [facility] (event) Branch History SDOH University o f Alcohol Frequency [place] M edical Branch History SDOH University o f Alcohol Std [place] [facility] Drinks Branch History SDOH University o f Alcohol Binge [place] [facility] al Branch Alcohol intake 2018-09-21 2018-09-21 0 /d University of 00:00:00 00:00:00 [facility] Tobacco use and 2018-09-21 2018-09-21 Never used Universit y of exposure 00:00:00 00:00:00 [facility] Alcohol Comment 2006-09-01 2006-09-01 Used to be a Univers ity of 00:00:00 00:00:00 heavy drinker but [facility] quit completely Branch in 1979 [birth year] Universit y of 00:00:00 00:00:00 [facility] Smoking Status Start Date Stop Date Source Never smoker [facility] Branch Medications Ordered Filled Start Stop Current Ordering Indication Dosage Frequency Signature Comments Components Source Medication Medication Date Date Medication? Clinician (SIG) Name Name FUROSEMIDE 2020-08 Yes [id number] TAKE 1 U nivers 20 mg 0-18 TABLET BY ity of tablet 00:00: MOUTH [place] 00 EVERY DAY Medical Branch sildenafil Yes [id number] 20mg Take 1 U nivers 20 mg 1-07 tablet by ity of tablet 00:00: mouth 3 [place] 00 (three) Medical times Branch daily. sildenafil Yes [id number] 20mg Take 1 U nivers 20 mg 1-07 tablet by ity of tablet 00:00: mouth 3 [place] 00 (three) Medical times Branch daily. furosemide 2019-08 Yes [id number] 20mg Take 1 U nivers 20 mg 0-01 tablet by ity of tablet 00:00: mouth [place] 00 daily. Medical Branch furosemide 2019-08 Yes [id number] 20mg Take 1 U nivers 20 mg 0-01 tablet by ity of tablet 00:00: mouth [place] 00 daily. Medical Branch furosemide 2019-08 Yes [id number] 20mg Take 1 U nivers 20 mg 0-01 tablet by ity of tablet 00:00: mouth [place] 00 daily. Medical Branch furosemide 2020- Yes [id number] 20mg Take 1 U nivers 20 mg 0-01 tablet by ity of tablet 00:00: mouth [place] 00 daily. Medical Branch furosemide 2020- Yes [id number] 20mg Take 1 U nivers 20 mg 0-01 tablet by ity of tablet 00:00: mouth [place] 00 daily. Medical Branch furosemide 2019-2020- No [id number] 20mg Take 1 Univers 20 mg 0-01 10-18 tablet by ity of tablet 00:00: 00:00 mouth [place] 00 :00 daily. Medical Branch sildenafil 2020-0 Yes [id number] 20mg Take 1 U nivers 20 mg 9-08 tablet by ity of tablet 00:00: mouth 3 [place] 00 (three) Medical times Branch daily. sildenafil 2020-0 Yes [id number] 20mg Take 1 U nivers 20 mg 9-08 tablet by ity of tablet 00:00: mouth 3 [place] 00 (three) Medical times Branch daily. sildenafil 2020-0 Yes [id number] 20mg Take 1 U nivers 20 mg 9-08 tablet by ity of tablet 00:00: mouth 3 [place] 00 (three) Medical times Branch daily. sildenafil 2020-0 Yes [id number] 20mg Take 1 U nivers 20 mg 9-08 tablet by ity of tablet 00:00: mouth 3 [place] 00 (three) Medical times Branch daily. sildenafil 2020-0 Yes [id number] 20mg Take 1 U nivers 20 mg 9-08 tablet by ity of tablet 00:00: mouth 3 [place] 00 (three) Medical times Branch daily. sildenafil 2020-0 Yes [id number] 20mg Take 1 U nivers 20 mg 9-08 tablet by ity of tablet 00:00: mouth 3 [place] 00 (three) Medical times Branch daily. sildenafil 2020-0 Yes [id number] 20mg Take 1 U nivers 20 mg 9-08 tablet by ity of tablet 00:00: mouth 3 [place] 00 (three) Medical times Branch daily. sildenafil 2020-0 2020- No [id number] 20mg Take 1 Univers 20 mg 9-08 01-07 tablet by ity of tablet 00:00: 00:00 mouth 3 [place] 00 :00 (three) Medical times Branch daily. sildenafil 2020-0 Yes [id number] 20mg Take 1 U nivers 20 mg 9- tablet by ity of tablet 00:00: mouth 3 [place] 00 (three) Medical times Branch daily. sildenafil 2019-0 2020- No [id number] 20mg Take 1 Univers 20 mg 04-11 09-08 tablet by ity of tablet 00:00: 00:00 mouth 3 [place] 00 :00 (three) Medical times Branch daily. Voltaren Voltaren Yes Lionel APPLY [facility] 00:[facility]: [facility] TO [facility] 00 AFFECTED l AREA Outpati ent Clinics Symbicort Symbicort 2020- No Lionel [address] [facility] 6-17 12-13 [facility] albuterol Yes [id number] 2{puff} Inhale 2 Univers 90 3-26 Puffs ity of mcg/actuati 00:00: every 4 [place] as on inhaler 00 (four) Medical hours as Branch needed for Wheezing or Shortness of Breath. albuterol Yes [id number] 2{puff} Inhale 2 Univers 90 3-26 Puffs ity of mcg/actuati 00:00: every 4 [place] on inhaler 00 (four) Medical hours as Branch needed for Wheezing or Shortness of Breath. albuterol Yes [id number] 2{puff} Inhale 2 Univers 90 3-26 Puffs ity of mcg/actuati 00:00: every 4 [place] on inhaler 00 (four) Medical hours as Branch needed for Wheezing or Shortness of Breath. albuterol Yes [id number] 2{puff} Inhale 2 Univers 90 3-26 Puffs ity of mcg/actuati 00:00: every 4 [place] on inhaler 00 (four) Medical hours as Branch needed for Wheezing or Shortness of Breath. albuterol 0 Yes [id number] 2{puff} Inhale 2 Univers 90 3-26 Puffs ity of mcg/actuati 00:00: every 4 [place] on inhaler 00 (four) Medical hours as Branch needed for Wheezing or Shortness of Breath. albuterol Yes [id number] 2{puff} Inhale 2 Univers 90 3-26 Puffs ity of mcg/actuati 00:00: every 4 [place] on inhaler 00 (four) Medical hours as Branch needed for Wheezing or Shortness of Breath. albuterol 0 Yes [id number] 2{puff} Inhale 2 Univers 90 3-26 Puffs ity of mcg/actuati 00:00: every 4 [place] on inhaler 00 (four) Medical hours as Branch needed for Wheezing or Shortness of Breath. albuterol Yes [id number] 2{puff} Inhale 2 Univers 90 3-26 Puffs ity of mcg/actuati 00:00: every 4 [place] on inhaler 00 (four) Medical hours as Branch needed for Wheezing or Shortness of Breath. albuterol 0 Yes [id number] 2{puff} Inhale 2 Univers 90 3-26 Puffs ity of mcg/actuati 00:00: every 4 [place] on inhaler 00 (four) Medical hours as Branch needed for Wheezing or Shortness of Breath. albuterol 0 Yes [id number] 2{puff} Inhale 2 Univers 90 3-26 Puffs ity of mcg/actuati 00:00: every 4 [place] on inhaler 00 (four) Medical hours as Branch needed for Wheezing or Shortness of Breath. albuterol 0 Yes [id number] 2{puff} Inhale 2 Univers 90 3-26 Puffs ity of mcg/actuati 00:00: every 4 [place] on inhaler 00 (four) Medical hours as Branch needed for Wheezing or Shortness of Breath. albuterol 0 Yes [id number] 2{puff} Inhale 2 Univers 90 3-26 Puffs ity of mcg/actuati 00:00: every 4 [place] on inhaler 00 (four) Medical hours as Branch needed for Wheezing or Shortness of Breath. albuterol 2019-0 Yes [id number] 2{puff} Inhale 2 Univers 90 3-26 Puffs ity of mcg/actuati 00:00: every 4 [place] on inhaler 00 (four) Medical hours as Branch needed for Wheezing or Shortness of Breath. Cetirizine Cetirizine 2018-08 2020- No Lionel [address] [facility] HCl HCl -14 [facility] [facility]: [facility] Glimepiride Glimepiride 2019-0 Yes Lionel [address] [facility] 9- [place] with [facility] - [facility]: [facility] FUROSEMIDE 2019-0 Yes [id number] TAKE 1 U nivers 20 mg 9-04 TABLET BY ity of tablet 00:00: MOUTH [place] 00 EVERY DAY Medical Branch FUROSEMIDE 2019-0 Yes [id number] TAKE 1 U nivers 20 mg 9-04 TABLET BY ity of tablet 00:00: MOUTH [place] 00 EVERY DAY Medical Branch FUROSEMIDE 2019-0 Yes [id number] TAKE 1 U nivers 20 mg 9-04 TABLET BY ity of tablet 00:00: MOUTH [place] 00 EVERY DAY Medical Branch FUROSEMIDE 2019-0 Yes [id number] TAKE 1 U nivers 20 mg 9-04 TABLET BY ity of tablet 00:00: MOUTH [place] 00 EVERY DAY Medical Branch FUROSEMIDE 2019-0 Yes [id number] TAKE 1 U nivers 20 mg 9-04 TABLET BY ity of tablet 00:00: MOUTH [place] 00 EVERY DAY Medical Branch FUROSEMIDE 2019-0 Yes [id number] TAKE 1 U nivers 20 mg 9-04 TABLET BY ity of tablet 00:00: MOUTH [place] 00 EVERY DAY Medical Branch FUROSEMIDE 2019-0 Yes [id number] TAKE 1 U nivers 20 mg 9-04 TABLET BY ity of tablet 00:00: MOUTH [place] 00 EVERY DAY Medical Branch FUROSEMIDE 2019-0 2020- No [id number] TAKE 1 Univers 20 mg 9-04 10-01 TABLET BY ity of tablet 00:00: 00:00 MOUTH [place] 00 :00 EVERY DAY Medical Branch FUROSEMIDE 2019-0 2020- No [id number] TAKE 1 Univers 20 mg 9-04 10-01 TABLET BY ity of tablet 00:00: 00:00 MOUTH [place] 00 :00 EVERY DAY Medical Branch sildenafil 2019-0 Yes [id number] 20mg Take 1 U nivers 20 mg 7-22 tablet by ity of tablet 00:00: mouth 3 [place] 00 (three) Medical times Branch daily. sildenafil 2019-0 Yes [id number] 20mg Take 1 U nivers 20 mg 7-22 tablet by ity of tablet 00:00: mouth 3 [place] 00 (three) Medical times Branch daily. sildenafil 2019-0 Yes [id number] 20mg Take 1 U nivers 20 mg 7-22 tablet by ity of tablet 00:00: mouth 3 [place] 00 (three) Medical times Branch daily. sildenafil 2019- No [id number] 20mg Take 1 Univers 20 mg 02-27- tablet by ity of tablet 00:00: 00:00 mouth 3 [place] 00 :00 (three) Medical times Branch daily. FUROSEMIDE 2019- No [id number] TAKE 1 Univers 20 mg 6-05 -04 TABLET BY ity of tablet 00:00: 00:00 MOUTH [place] 00 :00 EVERY DAY Medical Branch Lancets Lancets Yes Lionel as [facility] - [facility]: [facility] Lisinopril Lisinopril Yes Lionel [address] [facility] 01[facility] - 00:[facility]: [facility] Strips Strips 2019- No [facility] as [facility] [place] [facility] - 00:00: 00:00 [facility] 00 :00 l [facility]pati ent Clinics ProAir HFA ProAir HFA 2017-08 Yes Lionel [address] [facility] [place] [facility] - 00:[facility]: [facility] l [facility] Clinics tramadol-ac Yes [id number] Take 1 to Univers etaminophen 6-29 2 tablets ity of (ULTRACET) 00:00: by mouth [place] as 37.5-325 mg 00 every 8 Medic al per tablet hours as Branc h needed for pain. tramadol-ac Yes [id number] Take 1 to Univers etaminophen 6-29 2 tablets ity of (ULTRACET) 00:00: by mouth [place] as 37.5-325 mg 00 every 8 Medic al per tablet hours as Branc h needed for pain. tramadol-ac Yes [id number] Take 1 to Univers etaminophen 6-29 2 tablets ity of (ULTRACET) 00:00: by mouth [place] as 37.5-325 mg 00 every 8 Medic al per tablet hours as Branc h needed for pain. tramadol-ac Yes [id number] Take 1 to Univers etaminophen 6-29 2 tablets ity of (ULTRACET) 00:00: by mouth [place] as 37.5-325 mg 00 every 8 Medic al per tablet hours as Branc h needed for pain. tramadol-ac Yes [id number] Take 1 to Univers etaminophen 6-29 2 tablets ity of (ULTRACET) 00:00: by mouth [place] as 37.5-325 mg 00 every 8 Medic al per tablet hours as Branc h needed for pain. tramadol-ac Yes [id number] Take 1 to Univers etaminophen 6-29 2 tablets ity of (ULTRACET) 00:00: by mouth [place] as 37.5-325 mg 00 every 8 Medic al per tablet hours as Branc h needed for pain. tramadol-ac Yes [id number] Take 1 to Univers etaminophen 6-29 2 tablets ity of (ULTRACET) 00:00: by mouth [place] as 37.5-325 mg 00 every 8 Medic al per tablet hours as Branc h needed for pain. tramadol-ac Yes [id number] Take 1 to Univers etaminophen 6-29 2 tablets ity of (ULTRACET) 00:00: by mouth [place] as 37.5-325 mg 00 every 8 Medic al per tablet hours as Branc h needed for pain. tramadol-ac Yes [id number] Take 1 to Univers etaminophen 6-29 2 tablets ity of (ULTRACET) 00:00: by mouth [place] as 37.5-325 mg 00 every 8 Medic al per tablet hours as Branc h needed for pain. tramadol-ac Yes [id number] Take 1 to Univers etaminophen 6-29 2 tablets ity of (ULTRACET) 00:00: by mouth [place] as 37.5-325 mg 00 every 8 Medic al per tablet hours as Branc h needed for pain. tramadol-ac Yes [id number] Take 1 to Univers etaminophen 6-29 2 tablets ity of (ULTRACET) 00:00: by mouth [place] as 37.5-325 mg 00 every 8 Medic al per tablet hours as Branc h needed for pain. tramadol-ac Yes [id number] Take 1 to Univers etaminophen 6-29 2 tablets ity of (ULTRACET) 00:00: by mouth [place] as 37.5-325 mg 00 every 8 Medic al per tablet hours as Branc h needed for pain. tramadol-ac Yes [id number] Take 1 to Univers etaminophen 6-29 2 tablets ity of (ULTRACET) 00:00: by mouth [place] as 37.5-325 mg 00 every 8 Medic al per tablet hours as Branc h needed for pain. tramadol-ac Yes [id number] Take 1 to Univers etaminophen 6-29 2 tablets ity of (ULTRACET) 00:00: by mouth [place] as 37.5-325 mg 00 every 8 Medic al per tablet hours as Branc h needed for pain. levothyroxi Yes 25ug Take 25 Uni vers ne 9-10 mcg by ity of (SYNTHROID) 00:00: mouth [place] 25 mcg 00 every Medical tablet morning. [place] metFORMIN Yes Univers (GLUCOPHAGE 9-10 ity of ) 500 mg 00:00: [place] tablet 00 Medical [place] levothyroxi Yes 25ug Take 25 Uni vers ne 9-10 mcg by ity of (SYNTHROID) 00:00: mouth [place] 25 mcg 00 every Medical tablet morning. [place] metFORMIN Yes Univers (GLUCOPHAGE 9-10 ity of ) 500 mg 00:00: [place] tablet 00 Medical [place] levothyroxi Yes 25ug Take 25 Uni vers ne 9-10 mcg by ity of (SYNTHROID) 00:00: mouth [place] 25 mcg 00 every Medical tablet morning. [place] metFORMIN Yes Univers (GLUCOPHAGE 9-10 ity of ) 500 mg 00:00: [place] tablet 00 Medical [place] levothyroxi Yes 25ug Take 25 Uni vers ne 9-10 mcg by ity of (SYNTHROID) 00:00: mouth [place] 25 mcg 00 every Medical tablet morning. [place] metFORMIN Yes Univers (GLUCOPHAGE 9-10 ity of ) 500 mg 00:00: [place] tablet 00 Medical Branch levothyroxi Yes 25ug Take 25 Uni vers ne 9-10 mcg by ity of (SYNTHROID) 00:00: mouth [place] 25 mcg 00 every Medical tablet morning. [place] metFORMIN Yes Univers (GLUCOPHAGE 9-10 ity of ) 500 mg 00:00: [place] tablet 00 Medical [place] levothyroxi Yes 25ug Take 25 Uni vers ne 9-10 mcg by ity of (SYNTHROID) 00:00: mouth [place] 25 mcg 00 every Medical tablet morning. [place] metFORMIN Yes Univers (GLUCOPHAGE 9-10 ity of ) 500 mg 00:00: [place] tablet 00 Medical Branch levothyroxi Yes 25ug Take 25 Uni vers ne 9-10 mcg by ity of (SYNTHROID) 00:00: mouth [place] 25 mcg 00 every Medical tablet morning. Branch metFORMIN Yes Univers (GLUCOPHAGE 9-10 ity of ) 500 mg 00:00: [place] tablet 00 Medical [place] levothyroxi Yes 25ug Take 25 Uni vers ne 9-10 mcg by ity of (SYNTHROID) 00:00: mouth [place] 25 mcg 00 every Medical tablet morning. Branch metFORMIN Yes Univers (GLUCOPHAGE 9-10 ity of ) 500 mg 00:00: [place] tablet 00 Medical Branch levothyroxi Yes 25ug Take 25 Uni vers ne 9-10 mcg by ity of (SYNTHROID) 00:00: mouth [place] 25 mcg 00 every Medical tablet morning. [place] metFORMIN Yes Univers (GLUCOPHAGE 9-10 ity of ) 500 mg 00:00: [place] tablet 00 [facility] levothyroxi Yes 25ug Take 25 Uni vers ne 9-10 mcg by ity of (SYNTHROID) 00:00: mouth [place] 25 mcg 00 every Medical tablet morning. Branch metFORMIN Yes Univers (GLUCOPHAGE 9-10 ity of ) 500 mg 00:00: [place] tablet 00 [facility] levothyroxi Yes 25ug Take 25 Uni vers ne 9-10 mcg by ity of (SYNTHROID) 00:00: mouth [place] 25 mcg 00 every Medical tablet morning. Branch metFORMIN Yes Univers (GLUCOPHAGE 9-10 ity of ) 500 mg 00:00: [place] tablet 00 Medical [place] levothyroxi Yes 25ug Take 25 Uni vers ne 9-10 mcg by ity of (SYNTHROID) 00:00: mouth [place] 25 mcg 00 every Medical tablet morning. Branch metFORMIN Yes Univers (GLUCOPHAGE 9-10 ity of ) 500 mg 00:00: [place] tablet 00 Medical [place] levothyroxi Yes 25ug Take 25 Uni vers ne 9-10 mcg by ity of (SYNTHROID) 00:00: mouth [place] 25 mcg 00 every Medical tablet morning. Branch metFORMIN Yes Univers (GLUCOPHAGE 9-10 ity of ) 500 mg 00:00: [place] tablet 00 [facility] levothyroxi Yes 25ug Take 25 Uni vers ne 9-10 mcg by ity of (SYNTHROID) 00:00: mouth [place] 25 mcg 00 every Medical tablet morning. Branch metFORMIN Yes Univers (GLUCOPHAGE 9-10 ity of ) 500 mg 00:00: [place] tablet 00 Medical Branch OneTouch OneTouch Yes Lionel USE TO [facility] Ultra Test Ultra Test [place] TEST BLOOD [facility] - GLUCOSE [facility] TWICE A l DAY Outpati ent Clinics Multivitami Multivitami Yes Lionel not [facility] [place] defined [facility]ics Revatio Revatio Yes Lionel [address] [facility] [facility] Pravachol Pravachol Yes Lionel [address] [facility] [facility] Vitamin D-3 Vitamin D-3 Yes Lionel [address] [facility] [place] [facility] Januvia Januvia Yes Lionel [address] [facility] Metformin Metformin Yes Lionel [address] [facility] HCl HCl [place] with meals [facility] Gabapentin Gabapentin Yes Lionel [address] [facility] [place] [facility] Ultracet Ultracet Yes Lionel [address] [facility] [place] as needed [facility] Glucometer Glucometer Yes Lionel one [facility] Levothyroxi Levothyroxi Yes Lionel [address] [facility] ne Sodium ne Sodium [place] on an [facility] - empty [facility] stomach in l the Outpati morning ent Clinics Anoro Anoro Yes Lionel INHALE [address] [facility] Ellipta Ellipta [place] PUFF ONCE [facility] - A DAY [facility] l Outpat[facility] ent Clinics Tramadol-Ac Tramadol-Ac Yes Lionel (Schedule [facility] etaminophen etaminophen [facility] IV Drug) [facility] - TAKE 2 [facility] TABLETS BY l MOUTH Outpati THREE ent TIMES A Clinics DAY Immunizations Ordered Filled Immunization Date Status Comments Sour e Immunization Name Name SARS-COV-2 COVID-19 2020-11-03 Completed Unive rsity of MODERNA VACCINE 00:00:00 [facility] Branch SARS-COV-2 COVID-19 2020-10-06 Completed Unive rsity of MODERNA VACCINE 00:00:00 [facility] Afluria single dose Afluria single dose 2019-04-[address] [facility] - 00:[facility]:00 [facility] Influenza Virus 2018-07-05 Completed Universit y of Vaccine 00:00:00 [facility] Influenza Virus 2018-07-05 Completed Universit y of Vaccine 00:00:00 [facility] Influenza Virus 2018-07-05 Completed Universit y of Vaccine 00:00:00 [facility] Influenza Virus 2018-07-05 Completed Universit y of Vaccine 00:00:00 [facility] Influenza Virus 2018-07-05 Completed Universit y of Vaccine 00:00:00 [facility] Influenza Virus 2018-07-05 Completed Universit y of Vaccine 00:00:00 [facility] Influenza Virus 2018-07-05 Completed Universit y of Vaccine 00:00:00 [facility] Influenza Virus 2018-07-05 Completed Universit y of Vaccine 00:00:00 [facility] Influenza Virus 2018-07-05 Completed Universit y of Vaccine 00:00:00 [facility] Influenza Virus 2018-07-05 Completed Universit y of Vaccine 00:00:00 [facility] Influenza Virus 2018-07-05 Completed Universit y of Vaccine 00:00:00 [facility] Influenza Virus 2018-07-05 Completed Universit y of Vaccine 00:00:00 [facility] Influenza Virus 2018-07-05 Completed Universit y of Vaccine 00:00:00 [facility] Influenza Virus 2018-07-05 Completed Universit y of Vaccine 00:00:00 [facility] Afluria Afluria 2018-07-[address] [facility] - 00:[facility]:00 [facility] Influenza Virus 2015-05-02 Completed Universit y of Vaccine Quad IM 3+ 00:00:00 [facility] Influenza Virus 2015-05-02 Completed Universit y of Vaccine Quad IM 3+ 00:00:00 [facility] Influenza Virus 2015-05-02 Completed Universit y of Vaccine Quad IM 3+ 00:00:00 [facility] Influenza Virus 2015-05-02 Completed Universit y of Vaccine Quad IM 3+ 00:00:00 [facility] Influenza Virus 2015-05-02 Completed Universit y of Vaccine Quad IM 3+ 00:00:00 [facility] Influenza Virus 2015-05-02 Completed Universit y of Vaccine Quad IM 3+ 00:00:00 [facility] Influenza Virus 2015-05-02 Completed Universit y of Vaccine Quad IM 3+ 00:00:00 [facility] Influenza Virus 2015-05-02 Completed Universit y of Vaccine Quad IM 3+ 00:00:00 [facility] Influenza Virus 2015-05-02 Completed Universit y of Vaccine Quad IM 3+ 00:00:00 [facility] Branch Influenza Virus 2015-05-02 Completed Universit y of Vaccine Quad IM 3+ 00:00:00 [facility] Branch Influenza Virus 2015-05-02 Completed Universit y of Vaccine Quad IM 3+ 00:00:00 [facility] Influenza Virus 2015-05-02 Completed Universit y of Vaccine Quad IM 3+ 00:00:00 [facility] Influenza Virus 2015-05-02 Completed Universit y of Vaccine Quad IM 3+ 00:00:00 [facility] Influenza Virus 2015-05-02 Completed Universit y of Vaccine Quad IM 3+ 00:00:00 [facility] Influenza Virus 2015-05-01 Completed Universit y of Vaccine Quad IM 00:00:00 [place] [facility] Multi-dose 6+ [place] Branch Influenza Virus 2015-05-01 Completed Universit y of Vaccine Quad IM 00:00:00 [place] [facility] Multi-dose 6+ [place] Branch Influenza Virus 2015-05-01 Completed Universit y of Vaccine Quad IM 00:00:00 [place] [facility] Multi-dose 6+ MO Branch Influenza Virus 2015-05-01 Completed Universit y of Vaccine Quad IM 00:00:00 [place] [facility] Multi-dose 6+ MO Branch Influenza Virus 2015-05-01 Completed Universit y of Vaccine Quad IM 00:00:00 [place] [facility] Multi-dose 6+ [place] Branch Influenza Virus 2015-05-01 Completed Universit y of Vaccine Quad IM 00:00:00 [place] [facility] Multi-dose 6+ [place] Branch Influenza Virus 2015-05-01 Completed Universit y of Vaccine Quad IM 00:00:00 [place] [facility] Multi-dose 6+ MO Branch Influenza Virus 2015-05-01 Completed Universit y of Vaccine Quad IM 00:00:00 [place] [facility] Multi-dose 6+ [place] Branch Influenza Virus 2015-05-01 Completed Universit y of Vaccine Quad IM 00:00:00 [place] [facility] Multi-dose 6+ MO Branch Influenza Virus 2015-05-01 Completed Universit y of Vaccine Quad IM 00:00:00 [place] [facility] Multi-dose 6+ MO Branch Influenza Virus 2015-05-01 Completed Universit y of Vaccine Quad IM 00:00:00 [place] [facility] Multi-dose 6+ MO Branch Influenza Virus 2015-05-01 Completed Universit y of Vaccine Quad IM 00:00:00 [place] [facility] Multi-dose 6+ MO Branch Influenza Virus 2015-05-01 Completed Universit y of Vaccine Quad IM 00:00:00 [place] [facility] Multi-dose 6+ MO Branch Influenza Virus 2015-05-01 Completed Universit y of Vaccine Quad IM 00:00:00 [place] [facility] ical Multi-dose 6+ MO Branch Pneumococcal 13 2014-10-24 Completed Universit y of Conjugate, PCV13 00:00:00 [place] [facility] (Prevnar 13) Branch Pneumococcal 13 2014-10-24 Completed Universit y of Conjugate, PCV13 00:00:00 [place] [facility] (Prevnar 13) Branch Pneumococcal 13 2014-10-24 Completed Universit y of Conjugate, PCV13 00:00:00 [place] [facility] (Prevnar 13) Branch Pneumococcal 13 2014-10-24 Completed Universit y of Conjugate, PCV13 00:00:00 [place] [facility] (Prevnar 13) Branch Pneumococcal 13 2014-10-24 Completed Universit y of Conjugate, PCV13 00:00:00 [place] [facility] (Prevnar 13) Branch Pneumococcal 13 2014-10-24 Completed Universit y of Conjugate, PCV13 00:00:00 [place] [facility] (Prevnar 13) Branch Pneumococcal 13 2014-10-24 Completed Universit y of Conjugate, PCV13 00:00:00 [place] [facility] (Prevnar 13) Branch Pneumococcal 13 2014-10-24 Completed Universit y of Conjugate, PCV13 00:00:00 [place] [facility] (Prevnar 13) Branch Pneumococcal 13 2014-10-24 Completed Universit y of Conjugate, PCV13 00:00:00 [place] [facility] (Prevnar 13) Branch Pneumococcal 13 2014-10-24 Completed Universit y of Conjugate, PCV13 00:00:00 [place] [facility] (Prevnar 13) Branch Pneumococcal 13 2014-10-24 Completed Universit y of Conjugate, PCV13 00:00:00 [place] [facility] (Prevnar 13) Branch Pneumococcal 13 2014-10-24 Completed Universit y of Conjugate, PCV13 00:00:00 [facility] dical (Prevnar 13) Branch Pneumococcal 13 2014-10-24 Completed Universit y of Conjugate, PCV13 00:00:00 [facility] dical (Prevnar 13) Branch Pneumococcal 13 2014-10-24 Completed Universit y of Conjugate, PCV13 00:00:00 [facility] dical (Prevnar 13) Branch Influenza Virus 2014-06-27 Completed Universit y of Vaccine Quad IM 3+ 00:00:00 [facility] Influenza Virus 2014-06-27 Completed Universit y of Vaccine Quad IM 3+ 00:00:00 [facility] Influenza Virus 2014-06-27 Completed Universit y of Vaccine Quad IM 3+ 00:00:00 [facility] Influenza Virus 2014-06-27 Completed Universit y of Vaccine Quad IM 3+ 00:00:00 [facility] Influenza Virus 2014-06-27 Completed Universit y of Vaccine Quad IM 3+ 00:00:00 [facility] Influenza Virus 2014-06-27 Completed Universit y of Vaccine Quad IM 3+ 00:00:00 [facility] Influenza Virus 2014-06-27 Completed Universit y of Vaccine Quad IM 3+ 00:00:00 [facility] Influenza Virus 2014-06-27 Completed Universit y of Vaccine Quad IM 3+ 00:00:00 [facility] Influenza Virus 2014-06-27 Completed Universit y of Vaccine Quad IM 3+ 00:00:00 [facility] Influenza Virus 2014-06-27 Completed Universit y of Vaccine Quad IM 3+ 00:00:00 [facility] Influenza Virus 2014-06-27 Completed Universit y of Vaccine Quad IM 3+ 00:00:00 [facility] Influenza Virus 2014-06-27 Completed Universit y of Vaccine Quad IM 3+ 00:00:00 [facility] Influenza Virus 2014-06-27 Completed Universit y of Vaccine Quad IM 3+ 00:00:00 [facility] Influenza Virus 2014-06-27 Completed Universit y of Vaccine Quad IM 3+ 00:00:00 [facility] Influenza Virus 2012-07-27 Completed Universit y of Vaccine 00:00:00 [facility] Influenza Virus 2012-07-27 Completed Universit y of Vaccine 00:00:00 [facility] Influenza Virus 2012-07-27 Completed Universit y of Vaccine 00:00:00 [facility] Influenza Virus 2012-07-27 Completed Universit y of Vaccine 00:00:00 [facility] Influenza Virus 2012-07-27 Completed Universit y of Vaccine 00:00:00 [facility] Influenza Virus 2012-07-27 Completed Universit y of Vaccine 00:00:00 [facility] Influenza Virus 2012-07-27 Completed Universit y of Vaccine 00:00:00 [facility] Influenza Virus 2012-07-27 Completed Universit y of Vaccine 00:00:00 [facility] Influenza Virus 2012-07-27 Completed Universit y of Vaccine 00:00:00 [facility] Influenza Virus 2012-07-27 Completed Universit y of Vaccine 00:00:00 [facility] Influenza Virus 2012-07-27 Completed Universit y of Vaccine 00:00:00 [facility] Influenza Virus 2012-07-27 Completed Universit y of Vaccine 00:00:00 [facility] Influenza Virus 2012-07-27 Completed Universit y of Vaccine 00:00:00 [facility] Influenza Virus 2012-07-27 Completed Universit y of Vaccine 00:00:00 [facility] Pneumococcal 7 2007-07-13 Completed University of Conjugate, PCV7 00:00:00 [place] [facility] (Prevnar7) Branch Pneumococcal 7 2007-07-13 Completed University of Conjugate, PCV7 00:00:00 [place] [facility] (Prevnar7) Branch Pneumococcal 7 2007-07-13 Completed University of Conjugate, PCV7 00:00:00 [place] [facility] (Prevnar7) Branch Pneumococcal 7 2007-07-13 Completed University of Conjugate, PCV7 00:00:00 [place] [facility] (Prevnar7) Branch Pneumococcal 7 2007-07-13 Completed University of Conjugate, PCV7 00:00:00 [place] [facility] (Prevnar7) Branch Pneumococcal 7 2007-07-13 Completed University of Conjugate, PCV7 00:00:00 [place] [facility] (Prevnar7) Branch Pneumococcal 7 2007-07-13 Completed University of Conjugate, PCV7 00:00:00 [place] [facility] (Prevnar7) Branch Pneumococcal 7 2007-07-13 Completed University of Conjugate, PCV7 00:00:00 [place] [facility] (Prevnar7) Branch Pneumococcal 7 2007-07-13 Completed University of Conjugate, PCV7 00:00:00 [place] [facility] (Prevnar7) Branch Pneumococcal 7 2007-07-13 Completed University of Conjugate, PCV7 00:00:00 [place] [facility] (Prevnar7) Branch Pneumococcal 7 2007-07-13 Completed University of Conjugate, PCV7 00:00:00 [place] [facility] (Prevnar7) Branch Pneumococcal 7 2007-07-13 Completed University of Conjugate, PCV7 00:00:00 [place] [facility] (Prevnar7) Branch Pneumococcal 7 2007-07-13 Completed University of Conjugate, PCV7 00:00:00 [place] [facility] (Prevnar7) Branch Pneumococcal 7 2007-07-13 Completed University of Conjugate, PCV7 00:00:00 [place] [facility] (Prevnar7) Branch Vital Signs Vital Name Observation Time Observation Value Comments Source Systolic blood 2020-05-09 20:47:00 124 mm[Hg] Univer sity [facility] Diastolic blood 2020-05-09 20:47:00 81 [facility]Hg[facility] 2020-05-09 20:47:00 86 /min [facility] Body temperature 2020-05-09 20:46:00 36.5 [facility] Respiratory rate 2020-05-09 20:46:00 18 /[facility] O[facility] saturation in 2020-05-09 20:46:00 95 /min [facility] Arterial blood by [facility] Pulse oximetry [place] Procedures Procedure Date / Time Performing Clinician Source Performed ASSIGNMENT OF BENEFITS 2020-05-09 20:34:08 Doctor Unassigned, No [facility] DME/SUPPLY JUSTIFICATION 2019-11-02 05:01:00 Doctor Unassigned, No [facility] Encounters Start End Encounter Admission Attending Care Care Encounter Source Date/Time Date/Time Type Type Clinicians Facility Department ID 2021-07-24 2021-07-24 Outpatient Tawny GARCIA [facility] [id number] Univers 16:00:00 16:00:00 JAMIE [id number] ity [facility] 2021-05-23 2021-05-23 Cassandra Vieira [facility] [id number] Univers 00:00:00 00:00:00 MULTISPEC [id number] [facility] [id number] [facility] [id number] [facility] AND [place] 085 Branch DIABETES CLINIC 2021-04-03 2021-04-03 Outpatient [facility] [id number] [facility] 2021-04-03 2021-04-03 Outpatient [facility] [id number] [facility] 2021-03-27 2021-03-27 Outpatient [facility] [id number] [facility] 2021-03-26 2021-03-26 Outpatient [facility] [id number] [facility] 2021-01-31 2021-01-31 Outpatient [facility]ML[facility] [id number] [facility] 2021-01-21 2021-01-21 Outpatient [facility]MLC [facility] [id number] [facility] 2020-11-07 2020-11-07 Outpatient Tawny GARCIA [facility] [id number] Univers 14:00:00 14:00:00 JAMIE [id number] [facility] 2020-11-07 2020-11-07 Outpatient Tawny GARCIA [facility] [id number] Univers 14:00:00 14:00:00 JAMIE [facility] 2020-11-03 2020-11-03 Outpatient [facility] [id number] Univers 10:30:00 10:30:00 [facility] 2020-10-23 2020-10-23 Outpatient [facility]MLC [facility] [id number] [facility] 2020-10-22 2020-10-22 Outpatient [facility]ML[facility] [id number] [facility] 2020-10-06 2020-10-06 Outpatient Tawny SHINE [facility] [id number] Univers 10:25:00 10:25:00 BETHANY ity of [facility] 2020-08-14 2020-08-14 [facility] [id number] Univers 00:00:00 00:00:00 Jamie Webb MULTISPEC [id number] ity of [place] [id number] [facility] [id number] [facility] AND [address] DIABETES CLINIC 2020-07-31 2020-07-31 Outpatient STLMLC [facility] [id number] [facility] 2020-07-25 2020-07-25 Outpatient [facility]ML[facility] [id number] [facility] 2020-07-25 2020-07-25 Outpatient [facility] [id number] [facility] 2020-05-17 2020-05-17 Outpatient [facility] [id number] [facility] 2020-05-13 2020-05-13 Outpatient [facility] [id number] [facility] 2020-05-13 2020-05-13 Telephone Cassandra Ochoa [facility] [id number] Univers 00:00:00 00:00:00 MULTISPEC [id number] ity of [place] [id number] [facility] [phone] [address] DIABETES CLINIC 2020-05-09 2020-05-09 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 Vtc-Lab [facility] [id number] Univers 16:16:52 16:31:52 Visit Jamie Garcia MULTISPEC [id number] .10 ity of [place] [id number] [facility] [id number] [facility] AND [place] [address] DI[facility]ES [facility] 2020-05-09 2020-05-09 Office [facility] [id number] Univers 15:32:45 16:02:45 Visit Jamie Webb MULTISPEC [id number] ity of [place] [id number] [facility] [place] [id number] [facility] 085 Branch DIABETES CLINIC 2020-05-09 2020-05-09 Outpatient R [facility] [id number] Univers 15:30:00 15:30:00 JAMIE ity [facility] 2020-05-09 2020-05-09 Outpatient R [facility] [id number] Univers 15:30:00 15:30:00 [facility] 2020-05-09 2020-05-09 Orders Doctor KELLY [id number] Univers 00:00:00 00:00:00 Only Unassigned, KRISTYN [id number] ity of [place] [facility] [id number] [place] [id number] [facility] 009 Branch 2020-05-06 2020-05-06 Outpatient [facility]C [facility] [id number] [facility] 2020-04-30 2020-04-30 Outpatient [facility]MLC [facility] [id number] [facility] 2020-04-29 2020-04-29 Outpatient [facility]MLC [facility] [id number] [facility] 2020-04-25 2020-04-25 Outpatient [facility] [id number] [facility] 2020-04-18 2020-04-18 Telephone [facility] [id number] Univers 00:00:00 00:00:00 Jamie Webb MULTISPEC [id number] [id number] [place] [id number] [address] DIABETES CLINIC 2020-04-16 2020-04-16 Telephone [facility] [id number] Univers 00:00:00 00:00:00 Jamie Webb MULTISPEC [id number] ity of [place] [id number] [facility] [id number] [address] DIABETES CLINIC 2020-04-10 2020-04-10 Telephone [facility] [id number] Univers 00:00:00 00:00:00 Jamie Webb MULTISPEC 350..13.10 ity of [place] [id number] [facility] [place] [id number] [address] DIABETES [facility] 2020-04-01 2020-04-01 [facility] [id number] 09:30:00 09:30:00 [facility] Clinics 2020-03-01 2020-03-01 [facility] [id number] 08:00:00 08:00:00 t [facility] ent Clinics 2020-02-20 2020-02-20 [facility] [id number] 14:00:00 14:00:00 t [facility] ent Clinics 2020-01-24 2020-01-24 [facility] [id number] 08:40:00 08:40:00 t [employer] - [employer] [facility] ent [facility] 2019-11-02 2019-11-09 Telemedici [facility] [id number] [facility] 07:46:23 11:02:42 ne Visit Jamie Webb MULTISPEC [id number] ity of [place] [id number] [facility] [id number] [facility] AND [place] 085 Branch DIABETES CLINIC 2019-11-06 2019-11-06 Outpatient R [facility] [id number] Univers 07:00:00 07:00:00 [id number] ity [facility] 2019-11-02 2019-11-02 Outpatient R JOSE [facility] [id number] Univers 15:30:00 15:30:00 JAMIE [id number] ity [facility] 2019-11-02 2019-11-02 Outpatient R JOSE, [facility] [id number] Univers 15:30:00 15:30:00 JAMIE [facility] 2019-11-02 2019-11-02 Orders Doctor ROBIN [id number] Univers 00:00:00 00:00:00 Only Unassigned, KRISTYN [id number] ity of [place] [facility] [id number] [facility] [id number] [facility] 009 Branch 2019-11-01 2019-11-01 Outpatient Tawny GARCIA, [facility] [id number] Univers 10:00:00 10:00:00 JAMIE [facility] 2019-10-26 2019-10-26 [facility] [id number] 08:59:00 08:59:00 t [employer] [facility] l Medicine Outpati ent Clinics 2019-10-24 2019-10-24 [facility] [id number] 11:00:00 11:00:00 t [employer] - [employer] [facility] l Medicine Outpati ent Clinics 2019-07-25 2019-07-25 [facility] [id number] 10:20:00 10:20:00 t [employer] - [employer] [facility] l Medicine Outpati ent Clinics 2019-07-17 2019-07-17 [facility] [id number] [facility] 16:39:00 16:39:00 t [employer] [facility] Medicine l Medicine Outpati ent Clinics 2019-04-25 2019-04-25 [facility] [id number] 11:00:00 11:00:00 t [place] [employer] s - [employer] [facility] Medicine Outpati ent Clinics 2019-04-12 2019-04-12 Siobhan Garcia [facility] [id number] 00:00:00 00:00:00 Jamie Webb MULTISPEC [id number] ity of [place] [id number] [facility] [id number] [facility] AND [place] 5 Branch DIABETES CLINIC 2019-01-03 2019-01-03 [facility] [id number] 10:40:00 10:40:00 t [place] Confide[employer] s - Drive [facility] Medicine Outpati ent Clinics 2018-10-05 2018-10-05 [facility] [id number] 10:15:00 10:15:00 t [employer]ell[employer] s - Drive [facility] Medicine Medicine Outpati ent Clinics 2018-07-05 2018-07-05 [facility] [id number] [facility] 14:15:00 14:15:00 t [employer] s - Drive [facility] Medicine Medicine Outpati ent Clinics 2018-03-23 2018-03-23 [facility] [id number] 14:45:00 14:45:00 t [employer] s - Drive [facility] Medicine Outpati ent Clinics Results This patient has no known results.
== END 2021-06-14 17:15 | disposition home or self-care (01) ==
LOC: ER 14:03
DX: N39.0 Urinary tract infection, site not specified (principal); J06.9 Acute upper respiratory infection, unspecified; E11.9 Type 2 diabetes mellitus without complications; E03.9 Hypothyroidism, unspecified; Z20.822 Contact with and (suspected) exposure to COVID-19
CPT/HCPCS: 96365; 87070; 87088; 85025; 87086; 80048; 36415; 82565; 80076; 87081; 87077; 87186; 83690; 0240U; 74177; 71045; 99284; Q9967; J7040; 81003; 81015